=== PATIENT | male | born 1945 ===

== ENCOUNTER 2018-07-17 15:55 | Inpatient (IN) | payer OTHER ==
[~2018-07-17] VITALS: Ht 177.8 cm; Wt 82.8 kg
[2018-07-17] MEDS ORDERED: TIOT18 INH (16:17)
--- NOTE | 2018-07-17 18:29 | NUR ---
ARRIVES VIA W/C ABOUT 1600. ALERT AND ORIENTED. GETS SOB WITH LITTLE EXERTION.IV PLACED BY [facility]. HX LONG TIME SMOKER QUITTING ABOUT 10 YEARS AGO. ON 4 LPM OXYGEN AT THIS TIME WHEN NORMALLY ON ABOUT 1 LPM DEPENDING ON WHAT HE IS DOING. C/O SOME PAIN IN BACK DEPENDING ON IF COUGHING. AWARE NEEDS TO LET STAFF KNOW WHEN HE HAS TO GET UP IS HOOKED UP TO IV AND OXYGEN. TELE ON AND PER TECH ST AT 101. BED IN LOW POSITION. CALL LIGHT WITHIN REACH. WILL CONTINUE TO MONITOR.
[2018-07-18 05:20] LABS: BASOPHILS ABSOLUTE AUTO 0.02 K/mm3 (0.00-0.23); BASOPHILS PERCENT AUTO 0 % (0-2); EOSINOPHILS PERCENT AUTO 0 % (0-6); Hemoglobin 11.7 g/dL (13.5-17.5); IMMATURE GRAN ABSOLUTE AUTO 0.13 K/mm3 (0.00-0.10); IMMATURE GRAN PERCENT AUTO 1 % (0-1); LYMPHOCYTES ABSOLUTE AUTO 0.49 K/mm3 (0.84-5.20); LYMPHOCYTES PERCENT AUTO 5 % (21-46); MONOCYTES ABSOLUTE AUTO 0.13 K/mm3 (0.16-1.47); MONOCYTES PERCENT AUTO 1 % (4-13); Mean Corpuscular HGB 32.4 pg (26.0-34.0); Mean Corpuscular HGB Conc 32.5 g/dL (31.5-36.5); Mean Platelet Volume 10.4 fL (9.1-12.4); NEUTROPHILS ABSOLUTE AUTO 8.92 K/mm3 (1.96-9.15); NEUTROPHILS PERCENT AUTO 92 % (41-73); Platelet Count 297 K/mm3 (150-400); RDW Coefficient Variation 13.7 % (11.7-14.2); Red Blood Cell Count 3.61 M/mm3 (4.30-5.90); White Blood Cell Count 9.69 K/mm3 (4.00-11.30)
[2018-07-18 05:26] LABS: Mean Corpuscular Volume 100 fL (80-100)
[2018-07-18 05:52] LABS: Alanine Aminotransfer (ALT/SGP 17 U/L (12-78); Albumin, Blood 2.4 g/dL (3.4-5.0); Albumin/Globulin Ratio 0.5 (0.8-1.8); Alk Phos 82 U/L (50-136); Anion Gap 7 mmol/L (6-16); Aspartate Aminotrans (AST/SGOT 17 U/L (12-37); Bilirubin, Total 0.3 mg/dL (0.1-1.0); Blood Urea Nitrogen 32 mg/dL (8-24); Bun/Creatinine Ratio 31.1 (12.0-20.0); CO2, Blood 25 mmol/L (21-32); Calcium, Blood 9.4 mg/dL (8.5-10.1); Chloride, Blood 104 mmol/L (98-108); Creatinine, Blood 1.03 mg/dL (0.60-1.20); Globulin, Blood 5.1 g/dL (2.2-4.0); Glomerular Filtration Rate >60 (60-); Glucose, Blood 178 mg/dL (70-99); Potassium, Blood 4.8 mmol/L (3.5-5.5); Sodium, Blood 136 mmol/L (136-145); Total Protein, Blood 7.5 g/dL (6.4-8.2)
--- NOTE | 2018-07-18 06:35 | NUR ---
SHIFT SUMMARY PT A/O INDEPENDENT. 4L O2 NC. SOME SOB C EXCERTION. HE WAS ABLE TO SLEEP T/O NOC. CALL LIGHT IN REACH.
--- NOTE | 2018-07-18 07:51 | NUR ---
ASSUMED CARE OF PT- PT ALERT AND ORIENTED, PER REPORT INDEPENDENT IN THE ROOM. PT ON 4L AT START OF SHIFT. RT INCREASED O2 FLOW TO 5L VIA NC DT PT O2 SATS 86. PT HAS SOB ON EXERTION, ON TELE NSR AT 85. RECIEVING BREATHING Tx AT THE TIME OF ASSESSMENT, LUNGS DIM IN THE RIGHT LOWER LOBE AND FINE CRAKLES IN THE LEFT LOWER LOBE. NO EDEMA NOTED AT THE TIME OF ASSESSMENT ALL PERIPHERAL PULSES PALPATE WNL. CARLOS HOSE IN PLACE. CALL LIGHT IN REACH.
--- NOTE | 2018-07-18 19:34 | NUR ---
SHIFT SUMMARY- PT HAS HAD NO ACUTE CHANGES SINCE THE START OF THE SHIFT, O2 FLOW INCREASED TO 5L AND DR REDUCED STEROIDS THIS EVENING. PT ALERT AND ORIENTED, CALL LIGHT IN REACH, IV ABX RUNNING NOW AND SL AFTER.
[2018-07-19 05:22] LABS: BASOPHILS ABSOLUTE AUTO 0.02 K/mm3 (0.00-0.23); BASOPHILS PERCENT AUTO 0 % (0-2); EOSINOPHILS PERCENT AUTO 0 % (0-6); Hematocrit 36.2 % (37.0-53.0); Hemoglobin 11.7 g/dL (13.5-17.5); IMMATURE GRAN PERCENT AUTO 1 % (0-1); LYMPHOCYTES ABSOLUTE AUTO 0.81 K/mm3 (0.84-5.20); LYMPHOCYTES PERCENT AUTO 5 % (21-46); MONOCYTES ABSOLUTE AUTO 0.64 K/mm3 (0.16-1.47); MONOCYTES PERCENT AUTO 4 % (4-13); Mean Corpuscular HGB 32.4 pg (26.0-34.0); Mean Corpuscular HGB Conc 32.3 g/dL (31.5-36.5); Mean Corpuscular Volume 100 fL (80-100); Mean Platelet Volume 10.3 fL (9.1-12.4); NEUTROPHILS ABSOLUTE AUTO 14.56 K/mm3 (1.96-9.15); NEUTROPHILS PERCENT AUTO 90 % (41-73); Platelet Count 369 K/mm3 (150-400); RDW Coefficient Variation 13.9 % (11.7-14.2); RDW Standard Deviation 51.5 fL (35.1-46.3); Red Blood Cell Count 3.61 M/mm3 (4.30-5.90); White Blood Cell Count 16.23 K/mm3 (4.00-11.30)
[2018-07-19 05:39] LABS: Magnesium, Blood 1.5 mg/dL (1.6-2.4)
[2018-07-19 05:40] LABS: Alanine Aminotransfer (ALT/SGP 21 U/L (12-78); Albumin, Blood 2.5 g/dL (3.4-5.0); Albumin/Globulin Ratio 0.5 (0.8-1.8); Alk Phos 82 U/L (50-136); Anion Gap 7 mmol/L (6-16); Aspartate Aminotrans (AST/SGOT 22 U/L (12-37); Bilirubin, Total 0.4 mg/dL (0.1-1.0); Blood Urea Nitrogen 33 mg/dL (8-24); CO2, Blood 26 mmol/L (21-32); Calcium, Blood 9.5 mg/dL (8.5-10.1); Chloride, Blood 103 mmol/L (98-108); Creatinine, Blood 1.22 mg/dL (0.60-1.20); Globulin, Blood 5.3 g/dL (2.2-4.0); Glomerular Filtration Rate >60 (60-); Glucose, Blood 156 mg/dL (70-99); Phosphorus, Blood 3.6 mg/dL (2.5-4.9); Potassium, Blood 4.5 mmol/L (3.5-5.5); Sodium, Blood 136 mmol/L (136-145); Total Protein, Blood 7.8 g/dL (6.4-8.2)
--- NOTE | 2018-07-19 06:25 | NUR ---
SHIFT SUMMARY PT ON 5L O2 NC @ 94%. STILL CAN GET SOME SOB C EXCERTION. HE WAS ABLE TO SLEEP ON AND OFF T/O NIGHT. CALL LIGHT IN REACH.
--- NOTE | 2018-07-19 07:45 | NUR ---
ASSUMED CARE OF PT- RECIEVED REPORT FROM NIGHT MALINDA STRICKLAND. PT INCREASED FROM 5L NC TO 6L NC, O2 SATS 91-94% RT IN WITH PT STATED HE NEEDS TO AMBULATE IN THE HALLS TODAY AND O2 CAN BE TURNED UP FOR THE PT WHEN HE IS AMBULATING IF NEEDED TO INCREASE ACTIVITY TOLLERANCE. PT ALERT AND ORIENTED SITTING UP IN A CHAIR, NO CURRENT C/O PAIN CALL LIGHT IN REACH, INDEPANDENT IN THE ROOM.
--- NOTE | 2018-07-19 18:48 | NUR ---
SHIFT SUMMARY- PT AMBULATED IN THE [place] TODAY AT THE ENCOURAGEMENT OF RT. PT REQUIRED 10L VIA HIGH FLOW NC TO STAY AT 90% O2 SAT. PT DID NOT FEEL OUT OF BREATH, INSTRUCTED PT ABOUT PURSED LIP BREATHING. ONCE PT WAS BACK IN THE ROOM AT REST HE RECOVERED QUICKLY WITHIN 2 MINUTES AND WAS BACK TO 94% ON 6L VIA HIGH FLOW NC. PT DAUGHTER EXPRESSED CONCERN THAT THE PT MAY NEED MORE ASSISTANCE HE LIVES AT HOME ALONE, CALLED CARE MANAGEMENT, UNTIL CLOSER TO DC NO PLANS WILL BE MADE.
--- NOTE | 2018-07-20 04:20 | NUR ---
SHIFT SUMMARY: PT IS ALERT AND ORIENTED. PT IS CALM, FRIENDLY, AND COOPERATIVE WITH CARE. PT CALLS APPROPRIATELY. PT REPORTS SOB UPON EXERTION, O2 @ 6 L VIA HF NC KEEPING SATS > 90%. PT DENIES PAIN, NAUSEA, AND VOMITING. PT SLEPT MUCH OF THE NIGHT WHEN NOT DISTURBED. NO ACUTE CHANGES OR COMPLICATIONS THIS SHIFT. WILL REPORT TO DAY NURSE.
[2018-07-20 05:15] LABS: BASOPHILS ABSOLUTE AUTO 0.02 K/mm3 (0.00-0.23); BASOPHILS PERCENT AUTO 0 % (0-2); EOSINOPHILS PERCENT AUTO 0 % (0-6); Hematocrit 37.2 % (37.0-53.0); Hemoglobin 11.8 g/dL (13.5-17.5); IMMATURE GRAN ABSOLUTE AUTO 0.14 K/mm3 (0.00-0.10); IMMATURE GRAN PERCENT AUTO 1 % (0-1); LYMPHOCYTES ABSOLUTE AUTO 0.82 K/mm3 (0.84-5.20); LYMPHOCYTES PERCENT AUTO 7 % (21-46); MONOCYTES ABSOLUTE AUTO 0.43 K/mm3 (0.16-1.47); MONOCYTES PERCENT AUTO 4 % (4-13); Mean Corpuscular HGB 31.7 pg (26.0-34.0); Mean Corpuscular HGB Conc 31.7 g/dL (31.5-36.5); Mean Corpuscular Volume 100 fL (80-100); Mean Platelet Volume 10.4 fL (9.1-12.4); NEUTROPHILS ABSOLUTE AUTO 10.76 K/mm3 (1.96-9.15); NEUTROPHILS PERCENT AUTO 88 % (41-73); Platelet Count 386 K/mm3 (150-400); RDW Standard Deviation 51.6 fL (35.1-46.3); Red Blood Cell Count 3.72 M/mm3 (4.30-5.90); White Blood Cell Count 12.17 K/mm3 (4.00-11.30)
[2018-07-20 05:45] LABS: Albumin, Blood 2.5 g/dL (3.4-5.0); Albumin/Globulin Ratio 0.5 (0.8-1.8); Bilirubin, Total 0.2 mg/dL (0.1-1.0); Calcium, Blood 9.3 mg/dL (8.5-10.1); Creatinine, Blood 1.44 mg/dL (0.60-1.20); Globulin, Blood 4.7 g/dL (2.2-4.0); Potassium, Blood 4.9 mmol/L (3.5-5.5); Total Protein, Blood 7.2 g/dL (6.4-8.2)
--- NOTE | 2018-07-20 17:15 | NUR ---
SHIFT SUMMARY PT IS A&OX3. PT IS CALM AND COOPERATIVE. PT IS SELF AMBULATORY IN ROOM. PT HAS SPENT THE MAJORITY OF THE SHIFT SITTING IN CHAIR IN ROOM. PT HAS HAD MULTIPLE VISITORS THIS SHIFT. O2 HAS BEEN TITRATED DOWN TO 4L THIS SHIFT WITH O2 SATS AT 94 AFTER TITRATION. PT ACTIVELY USING INCINTIVE SPIROMETER. PT STATES NO ADDITIONAL NEEDS AT THIS TIME. WILL CONTINUE TO MONITOR.
--- NOTE | 2018-07-21 03:34 | NUR ---
SHIFT SUMMARY: PT IS ALERT AND ORIENTED. PT IS CALM, FRIENDLY, AND COOPERATIVE WITH CARE. PT CALLS APPROPRIATELY. PT IS INDEPENDENT IN THE ROOM. PT CONTINUES TO BE ON 5 L O2 VIA HF NC, SATS > 90%. PT SLEPT MOST OF THE NIGHT WHEN NOT DISTURBED. PT DENIES PAIN, NAUSEA, VOMITING, AND SOB. NO ACUTE CHANGES OR COMPLICATIONS OVERNIGHT. BED IN LOW POSITION, CALL LIGHT WITHIN REACH. WILL REPORT TO DAY NURSE.
[2018-07-21 04:41] LABS: BASOPHILS ABSOLUTE AUTO 0.02 K/mm3 (0.00-0.23); BASOPHILS PERCENT AUTO 0 % (0-2); EOSINOPHILS PERCENT AUTO 0 % (0-6); Hematocrit 38.4 % (37.0-53.0); Hemoglobin 12.3 g/dL (13.5-17.5); IMMATURE GRAN ABSOLUTE AUTO 0.26 K/mm3 (0.00-0.10); IMMATURE GRAN PERCENT AUTO 2 % (0-1); LYMPHOCYTES ABSOLUTE AUTO 0.89 K/mm3 (0.84-5.20); LYMPHOCYTES PERCENT AUTO 6 % (21-46); MONOCYTES ABSOLUTE AUTO 0.47 K/mm3 (0.16-1.47); MONOCYTES PERCENT AUTO 3 % (4-13); Mean Corpuscular HGB 31.9 pg (26.0-34.0); Mean Corpuscular Volume 100 fL (80-100); Mean Platelet Volume 10.2 fL (9.1-12.4); NEUTROPHILS ABSOLUTE AUTO 13.36 K/mm3 (1.96-9.15); NEUTROPHILS PERCENT AUTO 89 % (41-73); Platelet Count 390 K/mm3 (150-400); RDW Coefficient Variation 13.9 % (11.7-14.2); RDW Standard Deviation 51.6 fL (35.1-46.3); Red Blood Cell Count 3.85 M/mm3 (4.30-5.90)
[2018-07-21 04:59] LABS: Bun/Creatinine Ratio 34.5 (12.0-20.0); Calcium, Blood 9.4 mg/dL (8.5-10.1); Creatinine, Blood 1.74 mg/dL (0.60-1.20); Magnesium, Blood 1.9 mg/dL (1.6-2.4); Potassium, Blood 5.4 mmol/L (3.5-5.5)
--- NOTE | 2018-07-21 17:05 | NUR ---
SHIFT SUMMARY PT ALERT AND ORIENTED THROUGHOUT SHIFT. PT IS CALM AND COOPERATIVE AND GERDA APPROPRIATELY. PT HAS BEEN UP IN A CHAIR THROUGH THIS SHIFT. PT CONTINUES TO BE ON 5L O2. PT IS SELF AMBULATORY IN THE ROOM. PT DENIES FURTHER NEEDS AT THIS TIME. WILL CONTINUE TO MONITOR.
--- NOTE | 2018-07-21 18:22 | NUR ---
I AGREE WITH THE SN CAROLA GAN ASSESSMENT AND CARE OF THE PT TODAY
--- NOTE | 2018-07-22 03:53 | NUR ---
SHIFT SUMMARY: PT IS ALERT AND ORIENTED. PT IS CALM, FRIENDLY, AND COOPERATIVE WITH CARE. PT CALLS APPROPRIATELY. PT IS INDEPENDENT IN THE ROOM. PT ON 4.5 L O2, KEEPING SATS > 90%. PT DENIES PAIN, NAUSEA, AND VOMITING. PT REPORTS SOB UPON EXERTION. POSSIBLE DC TODAY. NO ACUTE CHANGES OR COMPLICATIONS. WILL REPORT TO DAY NURSE.
[2018-07-22 05:29] LABS: BASOPHILS ABSOLUTE AUTO 0.04 K/mm3 (0.00-0.23); BASOPHILS PERCENT AUTO 0 % (0-2); EOSINOPHILS ABSOLUTE AUTO 0.04 K/mm3 (0.00-0.68); EOSINOPHILS PERCENT AUTO 0 % (0-6); Hematocrit 39.5 % (37.0-53.0); Hemoglobin 12.7 g/dL (13.5-17.5); IMMATURE GRAN ABSOLUTE AUTO 0.57 K/mm3 (0.00-0.10); IMMATURE GRAN PERCENT AUTO 3 % (0-1); LYMPHOCYTES ABSOLUTE AUTO 1.47 K/mm3 (0.84-5.20); LYMPHOCYTES PERCENT AUTO 8 % (21-46); MONOCYTES ABSOLUTE AUTO 1.05 K/mm3 (0.16-1.47); MONOCYTES PERCENT AUTO 6 % (4-13); Mean Corpuscular HGB 31.5 pg (26.0-34.0); Mean Corpuscular HGB Conc 32.2 g/dL (31.5-36.5); Mean Corpuscular Volume 98 fL (80-100); Mean Platelet Volume 10.4 fL (9.1-12.4); NEUTROPHILS ABSOLUTE AUTO 14.97 K/mm3 (1.96-9.15); NEUTROPHILS PERCENT AUTO 83 % (41-73); Platelet Count 365 K/mm3 (150-400); RDW Coefficient Variation 13.8 % (11.7-14.2); RDW Standard Deviation 50.4 fL (35.1-46.3); Red Blood Cell Count 4.03 M/mm3 (4.30-5.90); White Blood Cell Count 18.14 K/mm3 (4.00-11.30)
[2018-07-22 05:51] LABS: Bun/Creatinine Ratio 41.9 (12.0-20.0); Calcium, Blood 9.3 mg/dL (8.5-10.1); Creatinine, Blood 1.48 mg/dL (0.60-1.20); Potassium, Blood 4.7 mmol/L (3.5-5.5)
--- NOTE | 2018-07-22 15:27 | NUR ---
SHIFT SUMMARY 73 YR OLD MALE ADMITTED FOR RESPIRATORY FAILURE/PNEUMONIA. LIMITED CODE (MEDS/DEFIBRILLATION IS OK). CARDIAC DIET. 4 1/2 LPM O2 (10-12 LPM WITH EXERTION). PT WAS ON 2-3 LPM O2 @ HOME BEFORE ADMIT. HE IS A&O X4, INDEPENDENT IN ROOM. CARLOS HOSE IN PLASE. LIVES ALONE. HE REQUESTS ASSISTANCE WITH DISCHARGE NEEDS (HOME HEALTH, BILL, MEDICAL SUPPORT SPECIALIST/ADL'S). MAY DISCHARGE TOMORROW. NEEDS HOME O2 EVAL. HX: COPD, PROSTATE CANCER, CKD 3, T-8 COMPRESSION FRACTURE. HOSPITALIST MAY SWITCH TO ORAL STEROIDS TODAY (WAS IV SOLUMEDROL).
--- NOTE | 2018-07-23 03:44 | NUR ---
07/23/18 0345 PT SLEEPING WELL.
--- NOTE | 2018-07-23 06:39 | NUR ---
07/23/18 0630 AWAKE AND CHEERFUL THIS AM. DENIES ANY S/S AT PRESENT. HOPING TO GO BACK TO SLEEP. STATES HE SLEPT BETTER BUT WOULD ENJOY MORE. VITALS STABLE.
[2018-07-23] MEDS ORDERED: ASPI81CH PO (15:18)
[2018-07-23] MEDS ORDERED: GUAI600T33 PO (15:20)
[2018-07-23] MEDS ORDERED: ALBU3IS INH (15:21)
[2018-07-23] MEDS ORDERED: PRED10 PO (15:23)
[2018-07-23] MEDS ORDERED: LEVOFLOXACIN500 MG PO (15:24)
[2018-07-23] MEDS ORDERED: FLUTICASONE-SA1 EAC4 INH (15:25)
--- NOTE | 2018-07-23 16:17 | NUR ---
PT DISCHARGED PT DISCHARGED AT 1615. PT IN STABLE CONDITION WITH VSS. PT & DAUGHTER EDUCATED ON DC INSTRUCTIONS. BOTH DENIED FURTHER INSTRUCTION. PT WHEELED OUT BY THIS RN & DRIVEN HOME BY DAUGHTER. IV REMOVED & INTACT
== END 2018-07-23 16:17 | disposition home or self-care (01) | DRG 193 ==
LOC: MEDS 15:55
PROVIDERS: Family Medicine; Student in an Organized Health Care Education/Training Program; ADMIT Hospitalist
DX: J18.1 Lobar pneumonia, unspecified organism (principal); J96.21 Acute and chronic respiratory failure with hypoxia; S22.000A Wedge compression fracture of unspecified thoracic vertebra, initial encounter for closed fracture; E87.1 Hypo-osmolality and hyponatremia; J43.9 Emphysema, unspecified; Z99.81 Dependence on supplemental oxygen; Z96.21 Cochlear implant status; K76.0 Fatty (change of) liver, not elsewhere classified; K75.81 Nonalcoholic steatohepatitis (NASH); N18.3 Chronic kidney disease, stage 3 (moderate); I12.9 Hypertensive chronic kidney disease with stage 1 through stage 4 chronic kidney disease, or unspecified chronic kidney disease; Z87.891 Personal history of nicotine dependence; Y92.9 Unspecified place or not applicable
CPT/HCPCS: 36415; 71045; 71046; 71250; 80048; 80053; 83735; 84100; 84145; 85025; 87040; 87070; 87205; 93005; 93010; 94640; 94667; 94760; 94761; J1650; J1956; J2930; J7512

== ENCOUNTER → 2018-07-17 | Outpatient (CLI) | payer OTHER ==
[~2018-07-17] MED LIST: TIOT18 INH
[2018-07-17 12:36] LABS: BASOPHILS ABSOLUTE AUTO 0.08 K/mm3 (0.00-0.23); BASOPHILS PERCENT AUTO 1 % (0-2); EOSINOPHILS ABSOLUTE AUTO 0.11 K/mm3 (0.00-0.68); EOSINOPHILS PERCENT AUTO 1 % (0-6); Hematocrit 38.1 % (37.0-53.0); Hemoglobin 12.7 g/dL (13.5-17.5); IMMATURE GRAN ABSOLUTE AUTO 0.26 K/mm3 (0.00-0.10); IMMATURE GRAN PERCENT AUTO 2 % (0-1); LYMPHOCYTES ABSOLUTE AUTO 0.62 K/mm3 (0.84-5.20); LYMPHOCYTES PERCENT AUTO 4 % (21-46); MONOCYTES ABSOLUTE AUTO 1.37 K/mm3 (0.16-1.47); MONOCYTES PERCENT AUTO 8 % (4-13); Mean Corpuscular HGB 32.3 pg (26.0-34.0); Mean Corpuscular HGB Conc 33.3 g/dL (31.5-36.5); Mean Corpuscular Volume 97 fL (80-100); NEUTROPHILS ABSOLUTE AUTO 14.16 K/mm3 (1.96-9.15); NEUTROPHILS PERCENT AUTO 85 % (41-73); Platelet Count 344 K/mm3 (150-400); RDW Coefficient Variation 13.7 % (11.7-14.2); RDW Standard Deviation 49.2 fL (35.1-46.3); Red Blood Cell Count 3.93 M/mm3 (4.30-5.90)
[2018-07-17 12:40] LABS: Calcium, Blood 10.1 mg/dL (8.5-10.1); Creatinine, Blood 1.25 mg/dL (0.60-1.20); Potassium, Blood 4.8 mmol/L (3.5-5.5)
== END | disposition home or self-care (01) ==
LOC: LAB EV 12:31 → LAB SHORT 12:31
PROVIDERS: Physician Assistant Surgical
DX: R06.02 Shortness of breath (principal)
CPT/HCPCS: 80048; 83880; 85025

== ENCOUNTER → 2018-08-10 | Outpatient (CLI) | payer OTHER ==
[~2018-08-10] MED LIST changes: +ALBU3IS INH; +ALBU90OI61 INH; +ASPI81CH PO; +CHOL10002; +Colace100 MG PO; +FLUTICASONE-SA1 EAC4 INH; +Fish Oil 10001000 MG PO; +GUAI600T33 PO; +LEVOFLOXACIN500 MG PO; +PRED10 PO; +PRED20 PO; +glycopyrrolate INH
[2018-08-10 10:12] LABS: BASOPHILS ABSOLUTE AUTO 0.02 K/mm3 (0.00-0.23); BASOPHILS PERCENT AUTO 0 % (0-2); EOSINOPHILS ABSOLUTE AUTO 0.26 K/mm3 (0.00-0.68); EOSINOPHILS PERCENT AUTO 5 % (0-6); Hematocrit 36.8 % (37.0-53.0); Hemoglobin 12.3 g/dL (13.5-17.5); IMMATURE GRAN ABSOLUTE AUTO 0.03 K/mm3 (0.00-0.10); IMMATURE GRAN PERCENT AUTO 1 % (0-1); LYMPHOCYTES ABSOLUTE AUTO 0.45 K/mm3 (0.84-5.20); LYMPHOCYTES PERCENT AUTO 9 % (21-46); MONOCYTES ABSOLUTE AUTO 0.32 K/mm3 (0.16-1.47); MONOCYTES PERCENT AUTO 6 % (4-13); Mean Corpuscular HGB 32.1 pg (26.0-34.0); Mean Corpuscular HGB Conc 33.4 g/dL (31.5-36.5); Mean Corpuscular Volume 96 fL (80-100); NEUTROPHILS ABSOLUTE AUTO 4.14 K/mm3 (1.96-9.15); NEUTROPHILS PERCENT AUTO 79 % (41-73); Platelet Count 171 K/mm3 (150-400); RDW Standard Deviation 49.4 fL (35.1-46.3); Red Blood Cell Count 3.83 M/mm3 (4.30-5.90); White Blood Cell Count 5.22 K/mm3 (4.00-11.30)
[2018-08-10 10:21] LABS: Alanine Aminotransfer (ALT/SGP 20 U/L (12-78); Albumin, Blood 2.9 g/dL (3.4-5.0); Albumin/Globulin Ratio 0.7 (0.8-1.8); Alk Phos 100 U/L (40-126); Anion Gap 9 mmol/L (6-16); Aspartate Aminotrans (AST/SGOT 25 U/L (12-37); Bilirubin, Total 0.3 mg/dL (0.1-1.0); Blood Urea Nitrogen 22 mg/dL (8-24); Bun/Creatinine Ratio 19.5 (12.0-20.0); CO2, Blood 26 mmol/L (21-32); Calcium, Blood 8.8 mg/dL (8.5-10.1); Chloride, Blood 103 mmol/L (98-108); Creatinine, Blood 1.13 mg/dL (0.60-1.20); Globulin, Blood 4.4 g/dL (2.2-4.0); Glomerular Filtration Rate >60 (60-); Glucose, Blood 178 mg/dL (70-99); Potassium, Blood 4.2 mmol/L (3.5-5.5); Sodium, Blood 138 mmol/L (136-145); Total Protein, Blood 7.3 g/dL (6.4-8.2)
== END | disposition home or self-care (01) ==
LOC: LAB EV 10:07 → LAB SHORT 10:07
PROVIDERS: General Practice
DX: M54.6 Pain in thoracic spine (principal)
CPT/HCPCS: 80053; 85025

== ENCOUNTER 2018-08-30 09:36 | Inpatient (IN) | payer OTHER ==
[~2018-08-30] VITALS: Ht 177.8 cm; Wt 80.8 kg
[~2018-08-30 09:36] MED LIST changes: -ALBU90OI61 INH; -CHOL10002; -Colace100 MG PO; -Fish Oil 10001000 MG PO; -PRED20 PO; -glycopyrrolate INH
[2018-08-30 09:49] LABS: BASOPHILS ABSOLUTE AUTO 0.03 K/mm3 (0.00-0.23); BASOPHILS PERCENT AUTO 0 % (0-2); EOSINOPHILS ABSOLUTE AUTO 0.47 K/mm3 (0.00-0.68); EOSINOPHILS PERCENT AUTO 5 % (0-6); Hematocrit 41.1 % (37.0-53.0); Hemoglobin 12.5 g/dL (13.5-17.5); IMMATURE GRAN ABSOLUTE AUTO 0.06 K/mm3 (0.00-0.10); IMMATURE GRAN PERCENT AUTO 1 % (0-1); LYMPHOCYTES ABSOLUTE AUTO 0.74 K/mm3 (0.84-5.20); LYMPHOCYTES PERCENT AUTO 7 % (21-46); MONOCYTES ABSOLUTE AUTO 0.84 K/mm3 (0.16-1.47); MONOCYTES PERCENT AUTO 8 % (4-13); Mean Corpuscular HGB 31.3 pg (26.0-34.0); Mean Corpuscular HGB Conc 30.4 g/dL (31.5-36.5); Mean Corpuscular Volume 103 fL (80-100); Mean Platelet Volume 10.3 fL (9.1-12.4); NEUTROPHILS ABSOLUTE AUTO 8.41 K/mm3 (1.96-9.15); NEUTROPHILS PERCENT AUTO 80 % (41-73); Platelet Count 281 K/mm3 (150-400); RDW Coefficient Variation 15.3 % (11.7-14.2); RDW Standard Deviation 56.8 fL (35.1-46.3); White Blood Cell Count 10.55 K/mm3 (4.00-11.30)
[2018-08-30 10:08] LABS: Alanine Aminotransfer (ALT/SGP 14 U/L (12-78); Albumin, Blood 3.3 g/dL (3.4-5.0); Albumin/Globulin Ratio 0.8 (0.8-1.8); Alk Phos 96 U/L (50-136); Anion Gap 5 mmol/L (6-16); Aspartate Aminotrans (AST/SGOT 20 U/L (12-37); Bilirubin, Total 0.6 mg/dL (0.1-1.0); Blood Urea Nitrogen 16 mg/dL (8-24); Bun/Creatinine Ratio 19.8 (12.0-20.0); CO2, Blood 31 mmol/L (21-32); Calcium, Blood 8.8 mg/dL (8.5-10.1); Chloride, Blood 104 mmol/L (98-108); Creatinine, Blood 0.81 mg/dL (0.60-1.20); Globulin, Blood 4.3 g/dL (2.2-4.0); Glomerular Filtration Rate >60 (60-); Glucose, Blood 120 mg/dL (70-99); Potassium, Blood 4.2 mmol/L (3.5-5.5); Sodium, Blood 140 mmol/L (136-145); Total Protein, Blood 7.6 g/dL (6.4-8.2)
[2018-08-30 10:20] LABS: Base Excess Venous 6.9 mmol/L; Bicarbonate Venous 29.6 mmol/L (24.0-30.0); PCO2 Venous 46.9 mmHg (38-42); PO2 Venous 55.1 mmHg (38-42); pH Blood Venous 7.43 (7.34-7.37)
--- NOTE | 2018-08-30 20:00 | NUR ---
PCU ADMIT PT BROUGHT TO PCU RM 04 BY [facility]EX FROM THE ER @ APPROX 1950. PT A&O X4, CALM AND COOPERATIVE. PT BROUGHT TO UNIT ON BIPAP, SWITCHED TO OXYMIZER @ 10 LPM FOR TRANSFER TO PCU BED W/ DESAT TO 80'S. PT PLACED BACK ON BIPAP 12/02, FIO2 60% W/ QUICK RECOVERY. MONITOR SHOWS NSR, HR 60-100. WILL CONTINUE TO MONITOR AND PROVIDE CARE.
[2018-08-30] MEDS ORDERED: CHOL10002 (20:21)
[2018-08-30] MEDS ORDERED: Fish Oil 10001000 MG PO (20:22)
[2018-08-30] MEDS ORDERED: Colace100 MG PO (20:26)
[2018-08-31 04:17] LABS: BASOPHILS ABSOLUTE AUTO 0.02 K/mm3 (0.00-0.23); BASOPHILS PERCENT AUTO 0 % (0-2); EOSINOPHILS PERCENT AUTO 1 % (0-6); Hematocrit 38.1 % (37.0-53.0); Hemoglobin 11.8 g/dL (13.5-17.5); IMMATURE GRAN ABSOLUTE AUTO 0.02 K/mm3 (0.00-0.10); IMMATURE GRAN PERCENT AUTO 0 % (0-1); LYMPHOCYTES ABSOLUTE AUTO 0.68 K/mm3 (0.84-5.20); LYMPHOCYTES PERCENT AUTO 8 % (21-46); MONOCYTES ABSOLUTE AUTO 0.59 K/mm3 (0.16-1.47); MONOCYTES PERCENT AUTO 7 % (4-13); Mean Corpuscular HGB 31.8 pg (26.0-34.0); Mean Corpuscular Volume 103 fL (80-100); Mean Platelet Volume 10.5 fL (9.1-12.4); NEUTROPHILS ABSOLUTE AUTO 6.92 K/mm3 (1.96-9.15); NEUTROPHILS PERCENT AUTO 83 % (41-73); Platelet Count 258 K/mm3 (150-400); RDW Coefficient Variation 15.3 % (11.7-14.2); RDW Standard Deviation 57.2 fL (35.1-46.3); Red Blood Cell Count 3.71 M/mm3 (4.30-5.90); White Blood Cell Count 8.33 K/mm3 (4.00-11.30)
[2018-08-31 04:38] LABS: Alanine Aminotransfer (ALT/SGP 12 U/L (12-78); Albumin, Blood 2.9 g/dL (3.4-5.0); Albumin/Globulin Ratio 0.7 (0.8-1.8); Alk Phos 83 U/L (50-136); Anion Gap 5 mmol/L (6-16); Aspartate Aminotrans (AST/SGOT 16 U/L (12-37); Bilirubin, Total 0.5 mg/dL (0.1-1.0); Blood Urea Nitrogen 22 mg/dL (8-24); Bun/Creatinine Ratio 28.8 (12.0-20.0); CO2, Blood 31 mmol/L (21-32); Calcium, Blood 8.9 mg/dL (8.5-10.1); Chloride, Blood 103 mmol/L (98-108); Creatinine, Blood 0.77 mg/dL (0.60-1.20); Glomerular Filtration Rate >60 (60-); Glucose, Blood 112 mg/dL (70-99); Potassium, Blood 4.4 mmol/L (3.5-5.5); Sodium, Blood 139 mmol/L (136-145); Total Protein, Blood 6.9 g/dL (6.4-8.2)
--- NOTE | 2018-08-31 05:16 | NUR ---
SHIFT SUMMARY PT A&O X4. VSS. EXP WHEEZE HEARD T/O LUNGS. PT TOLERATING BIPAP /, FIO2 60% WELL T/O SHIFT. PT NOT TOLERATING BEING OFF BIPAP WELL: 10L OXYMIZER APPLIED X2 THIS SHIFT FOR TRANSFER FROM ER [facility] TO PCU BED AND FOR PT TO EAT HALF A SANDWICH RESULTING IN SPO2 DESAT TO 70'S-80'S%, PT RECOVERED SUCCESSFULLY W/ REAPPLICATION OF BIPAP. MONITOR SHOWS NSR, HR 60-100. PT SBA, USING URINAL AT BEDSIDE. WILL CONTINUE TO MONITOR AND PROVIDE CARE UNTIL REPORT OFF TO DAY SHIFT RN.
[2018-08-31 06:05] LABS: PCO2 Arterial 50.3 mmHg (35-45); PO2 Arterial 103 mmHg (80-100); pH Blood Arterial 7.42 (7.35-7.45)
--- NOTE | 2018-08-31 11:52 | NUR ---
PT PLEASANT VERY TALKATIVE. HAD TO ENCOURAGE HIM TO SLOW DOWN AND BREATHE MORE. DENIES PAIN. H/R REG, NO MURMER NOTED. PER TELE: NSR AT 63. LUNGS LIGHTLY WHEEZY T/O. RESP EASY, UNLABORED. AT 18. ON 15 L HHI FLOW NC. BT X4 LAST BM THIS AM. LARGE. VOIDS PER URINAL. BED IN LOW POSITION, CALL LITE IN REACH, CALLS APROP PT STATES HAS TICK BITE. THINKS HEAD STILL IN. IN LEFT INNER THIGH. SMALL BLACK SPOT ON LEG, HEAD OF ERASER SIZE.
--- NOTE | 2018-08-31 19:20 | NUR ---
PT QUITE PLEASANT TODAY. DID HAVE SOME VISITORS TODAY. DOES DESAT WHEN TALKING A LOT. ENCOURAGED TO KEEP BREATHING AND REST BETWEEN TALKING. STATES UNDERSTANDING, BUT CONTINUES TO TALK. NO OTHER CONCERNS AT THIS TIME. BED IN LOW POSITION, CALL LITE IN REACH, CALLS APPROP
[2018-09-01 04:09] LABS: BASOPHILS ABSOLUTE AUTO 0.03 K/mm3 (0.00-0.23); BASOPHILS PERCENT AUTO 0 % (0-2); EOSINOPHILS ABSOLUTE AUTO 0.36 K/mm3 (0.00-0.68); EOSINOPHILS PERCENT AUTO 4 % (0-6); Hematocrit 39.3 % (37.0-53.0); Hemoglobin 12.1 g/dL (13.5-17.5); IMMATURE GRAN ABSOLUTE AUTO 0.07 K/mm3 (0.00-0.10); IMMATURE GRAN PERCENT AUTO 1 % (0-1); LYMPHOCYTES ABSOLUTE AUTO 1.18 K/mm3 (0.84-5.20); LYMPHOCYTES PERCENT AUTO 12 % (21-46); MONOCYTES ABSOLUTE AUTO 0.76 K/mm3 (0.16-1.47); MONOCYTES PERCENT AUTO 7 % (4-13); Mean Corpuscular HGB 31.5 pg (26.0-34.0); Mean Corpuscular HGB Conc 30.8 g/dL (31.5-36.5); Mean Corpuscular Volume 102 fL (80-100); Mean Platelet Volume 10.5 fL (9.1-12.4); NEUTROPHILS ABSOLUTE AUTO 7.85 K/mm3 (1.96-9.15); NEUTROPHILS PERCENT AUTO 77 % (41-73); Platelet Count 271 K/mm3 (150-400); RDW Coefficient Variation 15.2 % (11.7-14.2); RDW Standard Deviation 55.8 fL (35.1-46.3); Red Blood Cell Count 3.84 M/mm3 (4.30-5.90); White Blood Cell Count 10.25 K/mm3 (4.00-11.30)
[2018-09-01 04:29] LABS: Anion Gap 5 mmol/L (6-16); Blood Urea Nitrogen 26 mg/dL (8-24); Bun/Creatinine Ratio 31.3 (12.0-20.0); CO2, Blood 30 mmol/L (21-32); Chloride, Blood 104 mmol/L (98-108); Creatinine, Blood 0.83 mg/dL (0.60-1.20); Glomerular Filtration Rate >60 (60-); Glucose, Blood 98 mg/dL (70-99); Potassium, Blood 3.9 mmol/L (3.5-5.5); Sodium, Blood 139 mmol/L (136-145)
--- NOTE | 2018-09-01 06:01 | NUR ---
SHIFT SUMMARY PT A&O X4, PLEASANT AND COOPERATIVE. PT WEARING BIPAP MAJORITY OF NIGHT, BIPAP 10/, FIO2 45%. MONITOR SHOWS NSR. VSS. NO C/O PAIN. PT REPORT OF TICK BITE TO L INNER THIGH. PT AWAITING REMOVAL OF TICK BY MD. WILL CONTINUE TO MONITOR AND PROVIDE CARE UNTIL REPORT OFF TO DAY SHIFT RN.
--- NOTE | 2018-09-01 08:05 | NUR ---
AM NOTE. ASSUMED CARE OF PT APROX 0700, PT IS A&Ox4 AND SBA IN THE ROOM D/T SOB AND O2 SATS DROPPING VERY QUICKLY. PT WAS ADMITTED FOR RESP FAILURE, PT HAS BIPAP IN THE ROOM AND IS ON 13L HI FLOW WITH O2 SATS AT 92%. PT'S VS STABLE, PT DENIES ANY CHESTPAIN/PRESSURE OR N/V. PT IS ABLE TO SWALLOW PILLS WHOLE WIHT WATER. CALL LIGHT IN REACH, BED IS LOCKED AND LOW WILL CONTINUE TO MONITOR.
--- NOTE | 2018-09-01 18:34 | NUR ---
SHIFT SUMMARY. NO ACUTE CHANGES NOTED THIS SHIFT. PT'S VS HAVE BEEN STABLE T/O SHIFT. PT DENIES ANY CHEST PAIN/PRESSURE, N/V OR INCREASED/ABNORMAL SOB. PT IS STABLE ON 12L HI FLOW NC AND HAS NOT NEEDED THE BIPAP ALL SHIFT. PT HAS BEEN UP IN THE CHAIR SINCE AFTER BREAKFAST AND HAS REQUESTED TO STAY IN THE CHAIR FOR THE REST OF THE SHIFT. CALL LIGHT IN REACH, BED IS LOCKED AND LOW WILL CONTINUE TO MONITOR UNTIL REPORT IS GIVEN TO ONCOMING RN.
--- NOTE | 2018-09-01 22:04 | NUR ---
ASSUMED CARE OF PATIENT AT APPROXIMATELY 1900 FROM KENNETH Dong RN. PATIENT ALERT AND ORIENTED X4; INDEPENDENT IN ROOM FROM BED TO CHAIR; CALLS FOR BIPAP PLACEMENT. PATIENT DENIES CP/PRESSURE, PAIN ELSEWHERE, NUMBNESS, TINGLING, DIZZINESS AND NAUSEA. PATIENT REPORTS TOMORROW WILL BE DAY THREE OF NO BM; REPORTS HE WOULD RATHER BE CONSTIPATED THEN HAVE A BM IN THE BEDSIDE; PATIENT HAS DYSPNEA WITH MOVEMENT AND TALKING; OXYGEN SATURATION DROPS TO 85% AND PATIENT NEEDS ENCOURAGEMENT TO BREATH AND REST; OXYGEN SATURATION RISES BACK UP WITH SECONDS TO A MINUTE. PATIENT REPORTS HE WAS W/O OXYGEN FOR A WHILE WHEN THE POWER WAS OUT. NSR ON TELE; OXYGEN SATURATION ABOVE 90% ON 13LPM VIA HF NC OR ON BIPAP. PIV S/L. PATIENT CURRENTLY RESTING IN BED; CALL LIGHT IN REACH; BED ALARM ON; BED IN LOWEST POSISTION; WILL CONTINUE TO MONITOR AND ASSESS UNTIL END OF SHIFT.
--- NOTE | 2018-09-02 06:48 | NUR ---
PATIENT SLEPT ABOUT EIGHT HOURS OFF AND ON; VS. PATIENT HAD BM; BEDSIDE COMMODE. WILL CONTINUE TO MONITOR AND ASSESS UNTIL END OF SHIFT.
[2018-09-02] MEDS ORDERED: ALBU90OI61 INH (16:55)
--- NOTE | 2018-09-02 18:51 | NUR ---
SHIFT SUMMARY PT RESTING IN BED / CHAIR THROUGHOUT THE DAY. ALERT AND ORIENTED X3. DENIES PAIN THROUGHOUT THE DAY. VSS. OXYGEN SATURATIONS GREATER THAN 90% ON 13L HIGH FLOW CANNULA, TITRATED TO 12L VIA HIGH FLOW CANNULA, PT TOLERATED WELL. LUNG SOUNDS CLEAR, DIMINISHED THROUGHOUT. 3+ PITTING EDEMA TO BILATERAL FEET, 2+ PITTING EDEMA TO BLE. REDNESS NOTED TO BLE, WHICH IMPROVED THROUGHOUT THE SHIFT. PT UP TO BEDSIDE COMMODE WITH 1 PERSON ASSIST AND FWW.
--- NOTE | 2018-09-03 04:48 | NUR ---
END OF SHIFT SUMMARY PT HAS BEEN ALERT AND ORIEMNTED TALKING WITH STAFF APPROPRIATELY T/O SHIFT. THIS RN SPOKE WITH RESPIRATORY CARE REGARDING NEED FOR PT TO WEAR BIPAP TIS SHIFT. RT STATES THAT HE WOULD BE OKAY TO JUST USE O2 THIS SHIFT HE HAS BEEN IMPROVING WITH HIS RESPIRATORY STATUS AND DOES NOT WEAR CPAP/BIPAP AT HOME. PT INITALLY AT 11 L HIFLO NC HUMIDIFIED. PT HAS BEEN GRADUALLY TITRATED BY RT AND THIS RN TO 4.5. PT HAS TOLERATED THIS WELL. THIS IS HIS BASELINE O2. SPO2>90%. LUNGS DIM T/O. PT HAS SLEPT T/O NIGHT. HAS HAD LITTLE COMPLAINTS TO THIS NURSE. USES CALL LIGHT APPROPRIATELY. PT HAS BEEN USING URINAL TO VOID. WAS UP IN CHAIR INITIALLY THIS SHIFT. CALL LIGHT WOTHIN REACH. WILL CONTINUE TO MONITOR PT UNTIL SHIFT CHANGE.
[2018-09-03 07:43] LABS: Anion Gap 6 mmol/L (6-16); Blood Urea Nitrogen 41 mg/dL (8-24); Bun/Creatinine Ratio 51.6 (12.0-20.0); CO2, Blood 29 mmol/L (21-32); Calcium, Blood 9.4 mg/dL (8.5-10.1); Chloride, Blood 103 mmol/L (98-108); Creatinine, Blood 0.79 mg/dL (0.60-1.20); Glomerular Filtration Rate >60 (60-); Glucose, Blood 121 mg/dL (70-99); Potassium, Blood 4.5 mmol/L (3.5-5.5); Sodium, Blood 138 mmol/L (136-145)
--- NOTE | 2018-09-03 17:33 | NUR ---
PT NOW MED NO TELE STATUS PER . HE IS ON 7.5 LITERS O2 AT THIS TIME. DESATS VERY QUICKLY WITH MINIMAL EXERTION. HE IS SBA IN ROOM. USES WALKER TO GO TO THE RESTROOM. HE IS AO X 4 AND COOPERATAIVE WITH CARE TODAY. USES CALL LIGHT APPROPRIATELY. LUNGS ARE DIM BUT TIGHT. NO COUGH IS NOTED AT THIS TIME. HE USES PURSED LIP BREATHING WITH EXWERTION. TAKES PILLS WHOLE WITH WATER WITHOUT DIFF. WILL CONTINUE TO MONITOR THIS PATEINT UNTIL REPORT AND HAND OFF TO NOC SHIFT RN.
--- NOTE | 2018-09-03 20:08 | NUR ---
PCU NIGHTSHIFT ASSUMED CARE OF PT APPROX. 1900. PT A&OX4. ASSESSMENT COMPLETED. VITAL SIGNS STABLE. PT CURRENLTY UP IN CHAIR AT THIS TIME. PT REPORTS BREATHING IMPROVED SINCE ADMISSION. PT CURRENLTY ON 7L OXYFGEN VIA N.C. PT ABLE TO AMBULATE TO BATHROOM AND TOLERATES WELL. NO S/SX OF ACUTE DISTRESS. LUNG SOUNDS ON RIGHT LOBES CLEAR AND ELFT UPPER LOBE DIM BUT CLEAR AND LEFT LOW LOBE TIGHT. ABDOMEN HAS MILD DISTENTION THAT PT REPORTS NORMAL AND DENIES TENDER NESS. LEFT UPPER THIGH IS SITE OF TICK BITE WHERE PHYSCIAN REMOVED HEAD OF TICK. CALL LIGHT IN REACH AND PT DENIES ANY NEEDS AT THIS TIME. WILL CONTINUE TO MONITOR.
--- NOTE | 2018-09-04 04:57 | NUR ---
SHIFT SUMMARY PT PLEASNAT, COOPERATIVE AND USES CALL LIGHT APPROPRIATELY. PT REMAINS A&OX4. VITAL SIGNS REMAIN STABLE. WAS ABLE TO TITRATE OXYGEN DOWN TO 6L WITH OXYGEN SATS IN 90'S. WHILE PATIENT WAS TALKING HE DIPPED DOWN TO 89% AT ONE POINT WITH THIS BUT RECOVERED QUICKLY. NO S/SX OF LABORED BREATHING AND PT DENIES SOB. PT ABLE TO HOLD CONVERSATION AND EXERT HIMSELF WITHOUT SOB. ASSESSMENT FINDINGS REMAIN UNCHANGED SINCE START OF SHIFT. PT CURRENLTY IN BED SLEEPING. BED IN LOW POSITION, CALL LIGHT IN REACH AND PT DENIES ANY NEEDS AT THIS TIME. WILL CONTINUE TO MONITOR UNTIL HANDOFF TO DAYSHIFT RN.
[2018-09-04 07:25] LABS: Anion Gap 7 mmol/L (6-16); Blood Urea Nitrogen 46 mg/dL (8-24); Bun/Creatinine Ratio 63.8 (12.0-20.0); CO2, Blood 27 mmol/L (21-32); Calcium, Blood 9.4 mg/dL (8.5-10.1); Chloride, Blood 103 mmol/L (98-108); Creatinine, Blood 0.72 mg/dL (0.60-1.20); Glomerular Filtration Rate >60 (60-); Glucose, Blood 115 mg/dL (70-99); Potassium, Blood 4.3 mmol/L (3.5-5.5); Sodium, Blood 137 mmol/L (136-145)
[2018-09-04 12:37] LABS: Adenovirus Not Detected (NOT DETECT); Bordetella pertussis Not Detected (NOT DETECT); Chlamydophila pneumoniae Not Detected (NOT DETECT); Coronavirus 229E Not Detected (NOT DETECT); Coronavirus HKU1 Not Detected (NOT DETECT); Coronavirus NL63 Not Detected (NOT DETECT); Coronavirus OC43 Not Detected (NOT DETECT); Human Metapneumovirus Not Detected (NOT DETECT); Human Rhinovirus/Enterovirus Not Detected (NOT DETECT); Influenza A Not Detected (NOT DETECT); Influenza A/2009-H1 Not Detected (NOT DETECT); Influenza A/H1 Not Detected (NOT DETECT); Influenza A/H3 Not Detected (NOT DETECT); Influenza B Not Detected (NOT DETECT); Mycoplasma pneumoniae Not Detected (NOT DETECT); Parainfluenza Virus 1 Not Detected (NOT DETECT); Parainfluenza Virus 2 Not Detected (NOT DETECT); Parainfluenza Virus 3 Not Detected (NOT DETECT); Parainfluenza Virus 4 Not Detected (NOT DETECT); Respiratory Syncytial Virus Not Detected (NOT DETECT)
--- NOTE | 2018-09-04 18:19 | NUR ---
END OF SHIFT; NO ACUTE CHANGES IN PT CONDITION NOTED TODAY. HE REMAINS MED NO TELE STATUS. PT COOPERATIVE WITH CARE. SBA TO BATHROOM. PER MD ARBEN HIGGINS TOMORROW. SATS ARE IN THE 91% RANGE ON 7 LITERS. PT WORKS WITH PT OT TODAY AND WOULD LIKE HOME HEALTH WHEN HE DISCHARGES TO COME HELP WITH DIFF CHORES THAT ARE TOO MUCH FOR HIM TO HANDLE WITH HIS AIR HUNGER.
--- NOTE | 2018-09-04 23:18 | NUR ---
ASSUMED CARE OF PATIENT AT APPROXIMATELY 1900 FROM RENATO Kirby RN. PATIENT ALERT AND ORIENTED X4; INDEPENDENT IN ROOM FROM BED TO BATHROOM. PATIENT IS MEDICAL NO TELE STATUS. PATIENT DENIES CP/PRESSURE, PAIN ELSEWHERE, NUMBNESS, TINGLING, DIZZINESS AND NAUSEA. PATIENT HAS DYSPNEA WHEN TALKING ALOT; IMPROVED GREATLY FROM WHEN I CARED FOR HIM A FEW NIGHTS AGO; OXYGEN SATURATION ABOVE 90% ON 6LPM VIA NC. PIV S/L. PATIENT REPORTS HE IS TO GO HOME TOMORROW POSSIBLY. PATIENT CURRENTLY RESTING IN BED; CALL LIGHT IN REACH; BED ALARM ON; BED IN LOWEST POSISTION; WILL CONTINUE TO MONITOR AND ASSESS UNTIL END OF SHIFT.
--- NOTE | 2018-09-05 01:56 | NUR ---
REPORT GIVEN TO ILA FORMULATION TECHNICIAN. NO ACUTE CHANGES TO REPORT.
--- NOTE | 2018-09-05 01:57 | NUR ---
ASSUMED CARE FROM HA PETTY. PATIENT LAYING IN BEDATTEMPTING TO SLEEP. WOKE WHEN WE ENTERED ROOM. DENIES ANY NEEDS. NO CHANGES IN ASSESSMENT.
--- NOTE | 2018-09-05 02:42 | NUR ---
PATIENT STOOD AT BEDSIDE TO USE URINAL. PATIENT OXYGEN DROPPED TO LOW 80'S ON 6L NC ASYPTOMATIC. PATIENT DENIES ANY NEEDS. ONCE LAYING IN BED PATIENT COMING UP BETWEEN 88 TO LOW 90'S.
[2018-09-05 06:45] LABS: Anion Gap 8 mmol/L (6-16); Blood Urea Nitrogen 47 mg/dL (8-24); Bun/Creatinine Ratio 60.1 (12.0-20.0); CO2, Blood 28 mmol/L (21-32); Calcium, Blood 9.6 mg/dL (8.5-10.1); Chloride, Blood 103 mmol/L (98-108); Creatinine, Blood 0.78 mg/dL (0.60-1.20); Glomerular Filtration Rate >60 (60-); Glucose, Blood 116 mg/dL (70-99); Potassium, Blood 4.6 mmol/L (3.5-5.5); Sodium, Blood 139 mmol/L (136-145)
--- NOTE | 2018-09-05 07:18 | NUR ---
Pt is sitting up in chair when we enter the room for a bedside handoff report from MALINDA Muñoz. He is pleasantly conversant, states he hopes to go home but would like home health or a caregiver for assistance to prevent readmission to the hospital. He is currently taking a breathing tx from RT [facility]. spo2 91% on 6 l/min O2 delivery via nasal prongs.
--- NOTE | 2018-09-05 07:44 | NUR ---
ASSUMED CARE OF PATIENT AT APPROX 0700, PT UP IN CHAIR, A&OX4. O2 SATURATION IN 86-87%, PT STATES HE HAD JUST BEEN UP TO THE BATHROOM, O2 SAURATIONS RECOVER WITH PURSED LIP BREATHING TO 91-94%. LS CLEAR AND TIGHT, DIM IN BASES. PT DENIES PAIN AND NAUSEA. BP ELEVATED, PT REPORTS JUST GETTING BACK FROM BATHROOM, WILL CONTINUE TO MONITOR.
[2018-09-05] MEDS ORDERED: glycopyrrolate INH (15:51)
[2018-09-05] MEDS ORDERED: PRED20 PO (15:52)
--- NOTE | 2018-09-05 16:58 | NUR ---
DISCHARGE SUMMARY PT A&Ox4. CALM AND COOPERATIVE WITH CARE. PT UP IN CHAIR DURING SHIFT. IND IN ROOM AND BATHROOM. PT REPORTS SOB WITH EXERTION, LS DIM BASES AND TIGHT T/O, ON 6L O2 VIA NC, WEARING 4-6L O2 AT HOME. PT DENIES NAUSEA AND PAIN DURING SHIFT. PT RECEIVING IV STEROIDS. ELEVATED BP NOTED, TRENDING DOWN, OTHER VSS. NO OTHER ACUTE CHANGES NOTED DURING SHIFT. PT HOME WITH HOME HEALTH AND DISCUSSES THE NEED FOR ADDITIONAL CARE GIVERS. PT EDUCATED ON DISCHARGE INTRUCTIONS, MEDICATIONS AND FOLLOW UP APPOINTMENTS. [facility] TO CONTACT FOR PCP FOLLOW UP AND PT STATES HE HAS AN APPOINTMENT WITH [facility] ON SUNDAY. MEDICATIONS FAXED TO [facility] PER PT REQUEST. PT LEFT ROOM VIA WHEELCHAIR AT 1425 WITH HOME O2 TANK. PT STABLE UPON DISCHARGE.
== END 2018-09-05 16:29 | disposition home or self-care (01) | DRG 193 ==
LOC: ER 09:36 → ERHOLD 14:55 → PCU 19:45
PROVIDERS: Internal Medicine Endocrinology, Diabetes & Metabolism; Physician Assistant; ADMIT Student in an Organized Health Care Education/Training Program
PROC: 5A09457 Assistance with Respiratory Ventilation, 24-96 Consecutive Hours, Continuous Positive Airway Pressure (ICD-10-PCS; principal; 2018-08-30)
DX: J18.9 Pneumonia, unspecified organism (principal); J96.21 Acute and chronic respiratory failure with hypoxia; N18.3 Chronic kidney disease, stage 3 (moderate); I12.9 Hypertensive chronic kidney disease with stage 1 through stage 4 chronic kidney disease, or unspecified chronic kidney disease; J44.9 Chronic obstructive pulmonary disease, unspecified; M48.54XD Collapsed vertebra, not elsewhere classified, thoracic region, subsequent encounter for fracture with routine healing; Z66 Do not resuscitate; Z99.81 Dependence on supplemental oxygen; Z85.46 Personal history of malignant neoplasm of prostate; Z87.891 Personal history of nicotine dependence; Z79.82 Long term (current) use of aspirin; Z79.51 Long term (current) use of inhaled steroids; Z79.899 Other long term (current) drug therapy
CPT/HCPCS: 36415; 36600; 71045; 71046; 80048; 80053; 82803; 83605; 83880; 84145; 84484; 85025; 87040; 87486; 87581; 87633; 87798; 93005; 93010; 94640; 94644; 94660; 94667; 94762; 96365; 96367; 96375; 97116; 97162; 97165; 97530; 97535; 98960; 99285-25; G0515; J0456; J0696; J1650; J2920; J2930; J7050

== ENCOUNTER → 2019-05-02 | Outpatient (CLI) | payer OTHER ==
[~2019-05-02] MED LIST changes: +ALBU90OI61 INH; +CHOL10002; +Colace100 MG PO; +Fish Oil 10001000 MG PO; +PRED20 PO; +glycopyrrolate INH
[2019-05-02 10:47] LABS: BASOPHILS ABSOLUTE AUTO 0.04 K/mm3 (0.00-0.23); BASOPHILS PERCENT AUTO 0 % (0-2); EOSINOPHILS ABSOLUTE AUTO 0.05 K/mm3 (0.00-0.68); EOSINOPHILS PERCENT AUTO 0 % (0-6); IMMATURE GRAN ABSOLUTE AUTO 0.08 K/mm3 (0.00-0.10); IMMATURE GRAN PERCENT AUTO 1 % (0-1); LYMPHOCYTES ABSOLUTE AUTO 0.86 K/mm3 (0.84-5.20); LYMPHOCYTES PERCENT AUTO 7 % (21-46); MONOCYTES ABSOLUTE AUTO 1.34 K/mm3 (0.16-1.47); MONOCYTES PERCENT AUTO 12 % (4-13); Mean Corpuscular HGB 32.6 pg (26.0-34.0); Mean Corpuscular HGB Conc 33.3 g/dL (31.5-36.5); Mean Corpuscular Volume 98 fL (80-100); Mean Platelet Volume 10.6 fL (9.1-12.4); NEUTROPHILS ABSOLUTE AUTO 9.22 K/mm3 (1.96-9.15); NEUTROPHILS PERCENT AUTO 80 % (41-73); Platelet Count 215 K/mm3 (150-400); RDW Standard Deviation 46.7 fL (35.1-46.3); White Blood Cell Count 11.59 K/mm3 (4.00-11.30)
[2019-05-02 10:57] LABS: Alanine Aminotransfer (ALT/SGP 25 U/L (12-78); Albumin, Blood 3.5 g/dL (3.4-5.0); Albumin/Globulin Ratio 0.7 (0.8-1.8); Alk Phos 96 U/L (40-126); Anion Gap 15 mmol/L (6-16); Aspartate Aminotrans (AST/SGOT 27 U/L (12-37); Bilirubin, Total 0.6 mg/dL (0.1-1.0); Blood Urea Nitrogen 22 mg/dL (8-24); Bun/Creatinine Ratio 23.9 (12.0-20.0); CO2, Blood 25 mmol/L (21-32); Calcium, Blood 9.7 mg/dL (8.5-10.1); Chloride, Blood 106 mmol/L (98-108); Creatinine, Blood 0.92 mg/dL (0.60-1.20); Glomerular Filtration Rate >60 (60-); Glucose, Blood 119 mg/dL (70-99); Sodium, Blood 146 mmol/L (136-145); Total Protein, Blood 8.5 g/dL (6.4-8.2)
== END | disposition home or self-care (01) ==
LOC: LAB EV 10:41 → LAB SHORT 10:41
PROVIDERS: Physician Assistant
DX: J44.9 Chronic obstructive pulmonary disease, unspecified (principal)
CPT/HCPCS: 80053; 83880; 84145; 85025

== ENCOUNTER 2020-03-09 10:12 | Emergency (ER) | payer OTHER ==
[~2020-03-09] VITALS: Ht 177.8 cm; Wt 88.5 kg
[~2020-03-09 10:12] MED LIST changes: -ATOR40TA PO; -CEFP200 PO; -DILTIAZEM 24HR240 M3 PO; -FLUTICASONE-SA1 EA10; -FLUTICASONE-SA1 EA10 INH; -IPRAT-ALBUT 0.5-3 ML INH; -Lisinopril2.5 MG; -METOPROLOL TART25 MG PO; -OXYC5 PO; -ROFL500T PO; -TAMSULOSIN HCL0.4 M1 PO
[2020-03-09] MEDS ORDERED: Lisinopril2.5 MG (10:27)
[2020-03-09] MEDS ORDERED: TIOT18 INH (10:27)
[2020-03-09] MEDS ORDERED: FLUTICASONE-SA1 EA10 (10:28)
[2020-03-09 11:10] LABS: CHOL/HDL RATIO 3.5; Cholesterol 219 mg/dL (50-200); HDL Cholesterol 63 mg/dL (>39); LDL/HDL RATIO 2.2; Low Density Lipoprotein Chol 141 mg/dL (0-110); Triglycerides 75 mg/dL (30-160); Very Low Density Lipoprot Chol 15 mg/dL (6-32)
[2020-03-09 11:21] LABS: International Normalized Ratio 1.05; Prothrombin Time Results 11.2 Sec (9.7-11.5)
== END 2020-03-09 11:46 | disposition short-term general hospital (02) ==
LOC: ER 10:12
PROVIDERS: Emergency Medicine; Pharmacist
DX: I21.19 ST elevation (STEMI) myocardial infarction involving other coronary artery of inferior wall (principal); J43.9 Emphysema, unspecified; Z79.899 Other long term (current) drug therapy; Z99.81 Dependence on supplemental oxygen; Z79.52 Long term (current) use of systemic steroids; Z79.82 Long term (current) use of aspirin; Z87.891 Personal history of nicotine dependence
CPT/HCPCS: 71046; 80061; 84484; 85610; 85730; 86850; 86900; 86901; 93005; 93010; 96374; 96376; 99285-25; 99291-25; A9270; J1644

== ENCOUNTER → 2020-03-09 | Outpatient (CLI) | payer OTHER ==
[~2020-03-09] MED LIST changes: +ATOR40TA PO; +CEFP200 PO; +DILTIAZEM 24HR240 M3 PO; +FLUTICASONE-SA1 EA10; +FLUTICASONE-SA1 EA10 INH; +IPRAT-ALBUT 0.5-3 ML INH; +Lisinopril2.5 MG; +METOPROLOL TART25 MG PO; +OXYC5 PO; +ROFL500T PO; +TAMSULOSIN HCL0.4 M1 PO
[2020-03-09 09:07] LABS: BASOPHILS ABSOLUTE AUTO 0.01 K/mm3 (0.00-0.23); BASOPHILS PERCENT AUTO 0 % (0-2); Hematocrit 48.2 % (37.0-53.0); Hemoglobin 16.3 g/dL (13.5-17.5); LYMPHOCYTES PERCENT AUTO 3 % (21-46); MONOCYTES ABSOLUTE AUTO 0.25 K/mm3 (0.16-1.47); MONOCYTES PERCENT AUTO 2 % (4-13); Mean Corpuscular HGB 32.8 pg (26.0-34.0); Mean Corpuscular HGB Conc 33.8 g/dL (31.5-36.5); Mean Corpuscular Volume 97 fL (80-100); Mean Platelet Volume 10.7 fL (9.1-12.4); Platelet Count 210 K/mm3 (150-400); Red Blood Cell Count 4.97 M/mm3 (4.30-5.90); White Blood Cell Count 10.33 K/mm3 (4.00-11.30)
[2020-03-09 09:13] LABS: EOSINOPHILS ABSOLUTE AUTO 0.23 K/mm3 (0.00-0.68); EOSINOPHILS PERCENT AUTO 2 % (0-6); IMMATURE GRAN ABSOLUTE AUTO 0.01 K/mm3 (0.00-0.10); IMMATURE GRAN PERCENT AUTO 0 % (0-1); NEUTROPHILS ABSOLUTE AUTO 9.53 K/mm3 (1.96-9.15); NEUTROPHILS PERCENT AUTO 92 % (41-73)
[2020-03-09 09:18] LABS: Albumin, Blood 4.3 g/dL (3.4-5.0); Bilirubin, Total 0.5 mg/dL (0.1-1.0); Bun/Creatinine Ratio 15.5 (12.0-20.0); Calcium, Blood 10.4 mg/dL (8.5-10.1); Creatinine, Blood 1.42 mg/dL (0.60-1.20); Globulin, Blood 4.3 g/dL (2.2-4.0); Potassium, Blood 3.8 mmol/L (3.5-5.5); Total Protein, Blood 8.6 g/dL (6.4-8.2)
[2020-03-09 09:42] LABS: BASOPHILS PERCENT MAN 0 % (0-2); EOSINOPHILS PERCENT MAN 0 % (0-6); LYMPHOCYTES PERCENT MAN 3 % (21-46); MONOCYTES PERCENT MAN 1 % (4-13); NEUTROPHILS ABSOLUTE MAN 9.91 K/mm3 (1.96-9.15); SEG NEUTROPHILS PERCENT MAN 96 % (41-73); TOTAL CELLS COUNTED 100
== END | disposition home or self-care (01) ==
LOC: LAB EV 09:00 → LAB SHORT 09:00
PROVIDERS: Physician Assistant
DX: R07.9 Chest pain, unspecified (principal); R06.00 Dyspnea, unspecified
CPT/HCPCS: 80053; 83880; 84484; 85025

== ENCOUNTER 2020-04-14 14:48 | Emergency (ER) | payer OTHER ==
[~2020-04-14] VITALS: Ht 177.8 cm; Wt 74.8 kg
[~2020-04-14 14:48] MED LIST changes: +FLUTICASONE-SA1 EA10; +Lisinopril2.5 MG
[2020-04-14 15:31] LABS: BASOPHILS ABSOLUTE AUTO 0.05 K/mm3 (0.00-0.23); BASOPHILS PERCENT AUTO 0 % (0-2); EOSINOPHILS ABSOLUTE AUTO 0.07 K/mm3 (0.00-0.68); EOSINOPHILS PERCENT AUTO 1 % (0-6); Hematocrit 35.4 % (37.0-53.0); Hemoglobin 11.7 g/dL (13.5-17.5); IMMATURE GRAN ABSOLUTE AUTO 0.11 K/mm3 (0.00-0.10); IMMATURE GRAN PERCENT AUTO 1 % (0-1); LYMPHOCYTES ABSOLUTE AUTO 0.55 K/mm3 (0.84-5.20); LYMPHOCYTES PERCENT AUTO 4 % (21-46); MONOCYTES ABSOLUTE AUTO 0.78 K/mm3 (0.16-1.47); MONOCYTES PERCENT AUTO 6 % (4-13); Mean Corpuscular HGB 31.5 pg (26.0-34.0); Mean Corpuscular HGB Conc 33.1 g/dL (31.5-36.5); Mean Corpuscular Volume 95 fL (80-100); NEUTROPHILS ABSOLUTE AUTO 10.99 K/mm3 (1.96-9.15); NEUTROPHILS PERCENT AUTO 88 % (41-73); Platelet Count 451 K/mm3 (150-400); RDW Coefficient Variation 13.2 % (11.7-14.2); RDW Standard Deviation 46.6 fL (35.1-46.3); Red Blood Cell Count 3.71 M/mm3 (4.30-5.90); White Blood Cell Count 12.55 K/mm3 (4.00-11.30)
[2020-04-14 15:39] LABS: Anion Gap 4 mmol/L (6-16); Blood Urea Nitrogen 20 mg/dL (8-24); Bun/Creatinine Ratio 28.2 (12.0-20.0); CO2, Blood 29 mmol/L (21-32); Calcium, Blood 9.5 mg/dL (8.5-10.1); Chloride, Blood 95 mmol/L (98-108); Creatinine, Blood 0.71 mg/dL (0.60-1.20); Glomerular Filtration Rate >60 (60-); Glucose, Blood 109 mg/dL (70-99); Potassium, Blood 4.9 mmol/L (3.5-5.5); Sodium, Blood 128 mmol/L (136-145)
[2020-04-14 15:45] LABS: International Normalized Ratio 1.04; Prothrombin Time Results 11.1 Sec (9.7-11.5)
[2020-04-14 16:19] LABS: Source, Urine Catheter
[2020-04-14 16:26] LABS: Appearance, Urine Bloody (Clear); Bilirubin, Urine Neg (Neg); Blood, Urine 5+ (Neg); Color, Urine Red (P-Yellow); Glucose Qualitative, Urine Neg (Neg); Ketones, Urine Neg (Neg); Leukocyte Esterase, Urine 2+ (Neg); Nitrite, Urine Neg (Neg); Protein, Urine 4+ (Neg); Urobilinogen, Urine NORM (Normal)
[2020-04-14 16:33] LABS: Bacteria Many /hpf; Red Blood Cells, Urine TNTC /hpf (0-2); Squamous Epithelial Cells Not Seen /hpf (Few)
[2020-04-14] MEDS ORDERED: CEFP200 PO (16:58)
[2020-04-14] MEDS ORDERED: FLUTICASONE-SA1 EA10 INH (17:07)
[2020-04-14] MEDS ORDERED: DILTIAZEM 24HR240 M3 PO (17:08)
[2020-04-14] MEDS ORDERED: OXYC5 PO (17:09)
[2020-04-14] MEDS ORDERED: IPRAT-ALBUT 0.5-3 ML INH (17:09)
[2020-04-14] MEDS ORDERED: ROFL500T PO (17:10)
[2020-04-14] MEDS ORDERED: TAMSULOSIN HCL0.4 M1 PO (17:11)
[2020-04-14] MEDS ORDERED: ATOR40TA PO (17:12)
[2020-04-14] MEDS ORDERED: METOPROLOL TART25 MG PO (17:13)
== END 2020-04-14 18:05 | disposition home or self-care (01) ==
LOC: ER 14:48
PROVIDERS: Emergency Medicine
DX: N39.0 Urinary tract infection, site not specified (principal); R31.0 Gross hematuria; J43.9 Emphysema, unspecified; Z79.899 Other long term (current) drug therapy; Z79.82 Long term (current) use of aspirin
CPT/HCPCS: 36415; 51700; 80048; 81001; 85025; 85610; 87077; 87086; 87186; 93005; 93010; 96365-59; 99284-25; J0696

== ENCOUNTER 2021-08-13 20:08 | Inpatient (IN) | payer OTHER ==
[~2021-08-13] VITALS: Ht 177.8 cm; Wt 86.2 kg
[~2021-08-13 20:08] MED LIST changes: +ATOR40TA PO; +CEFP200 PO; +DILTIAZEM 24HR240 M3 PO; +FLUTICASONE-SA1 EA10 INH; +IPRAT-ALBUT 0.5-3 ML INH; +METOPROLOL TART25 MG PO; +OXYC5 PO; +ROFL500T PO; +TAMSULOSIN HCL0.4 M1 PO
[2021-08-13 20:32] LABS: BASOPHILS ABSOLUTE AUTO 0.02 K/mm3 (0.00-0.23); BASOPHILS PERCENT AUTO 0 % (0-2); EOSINOPHILS ABSOLUTE AUTO 0.13 K/mm3 (0.00-0.68); EOSINOPHILS PERCENT AUTO 1 % (0-6); Hematocrit 38.3 % (37.0-53.0); Hemoglobin 11.9 g/dL (13.5-17.5); IMMATURE GRAN ABSOLUTE AUTO 0.07 K/mm3 (0.00-0.10); IMMATURE GRAN PERCENT AUTO 1 % (0-1); LYMPHOCYTES ABSOLUTE AUTO 0.66 K/mm3 (0.84-5.20); LYMPHOCYTES PERCENT AUTO 5 % (21-46); MONOCYTES ABSOLUTE AUTO 0.84 K/mm3 (0.16-1.47); MONOCYTES PERCENT AUTO 7 % (4-13); Mean Corpuscular HGB 30.9 pg (26.0-34.0); Mean Corpuscular HGB Conc 31.1 g/dL (31.5-36.5); Mean Corpuscular Volume 100 fL (80-100); Mean Platelet Volume 10.5 fL (9.1-12.4); NEUTROPHILS ABSOLUTE AUTO 11.08 K/mm3 (1.96-9.15); NEUTROPHILS PERCENT AUTO 87 % (41-73); Platelet Count 324 K/mm3 (150-400); RDW Coefficient Variation 13.2 % (11.7-14.2); RDW Standard Deviation 48.7 fL (35.1-46.3); Red Blood Cell Count 3.85 M/mm3 (4.30-5.90)
[2021-08-13 20:49] LABS: Albumin, Blood 2.7 g/dL (3.4-5.0); Albumin/Globulin Ratio 0.5 (0.8-1.8); Bilirubin, Total 0.4 mg/dL (0.1-1.0); Calcium, Blood 9.1 mg/dL (8.5-10.1); Creatinine, Blood 0.8 mg/dL (0.60-1.20); Globulin, Blood 5.3 g/dL (2.2-4.0); Potassium, Blood 4.4 mmol/L (3.5-5.5)
[2021-08-13 22:47] LABS: Influenza A, PCR NEGATIVE (NEGATIVE); Influenza B, PCR NEGATIVE (NEGATIVE); Resp Syncytial Virus, PCR NEGATIVE (NEGATIVE); SARS-Cov-2 (COVID-19) PCR, MMC NEGATIVE (NEGATIVE)
--- NOTE | 2021-08-14 11:15 | NUR ---
PT ARRIVAL... THE PT ARRIVED ON THE UNIT AT 0930 THE PT IS A&Ox4 AND SBA IN THE ROOM. THE PT WAS ON 10L OXYMIZER WITH O2 SATS 88-90% THE PT'S O2 SATS DROPPED DOWN TO THE LOW 70'S WHEN THE PT STOOD TO TRANSFER FROM THE GURNEY TO THE BED. THE PT'S L/S ARE TIGHT WITH SCATTERED WHEEZES MORE SO ON THE LEFT THAN THE RIGHT. THE PT'S RR IS IN THE 20'S. THE PT IS IN SR IN THE 80'S-90'S WITH A STABLE BP. NO EDEMA IS NOTED ON ASSESSMENT. THE PT IS IND WITH ADLs EXCEPT FOR THE FACT THAT THE PT'S O2 SATS DROP TO THE LOW 70'S AND RECOVER SLOWLY WITH ANY TYPE OF ACTIVITY. CALL LIGHT IN REACH WILL CONTINUE TO MONITOR.
--- NOTE | 2021-08-14 13:05 | NUR ---
PT UPDATE.... THE PT HAD CALLED TO USE THE URINAL, D/T PAST HISTORY OF PROSTATE CANCER THE PT IS UNABLE TO VOID WHILE SITTING OR LAYING IN BED, THIS RN HELPED THE PT UP TO STAND AT THE BEDSIDE TO VOID, DURING THIS TIME THE PT'S O2 SATS DROPPED DOWN TO 68% WHILE THE PT WAS ON 12L OXYMIZER THE PT'S O2 WAS INCREASED TO 15L OXYMIZER AFTER THE INCREASED O2 THE PT'S O2 SATS WERE SLOW TO RECOVER AT LEAST 3 MINS TO BE >85%. THE PT'S HR ALSO INCREASED TO SINUS TACH IN THE 120'S DURING THIS TIME. WILL CONTINUE TO MONITOR.
--- NOTE | 2021-08-14 17:17 | NUR ---
SHIFT SUMMARY.... PALLIATIVE CARE CONSULT WAS PLACED FOR THE PT, PALLIATIVE CARE RN CAME TO THE PT'S ROOM AND SPOKE WITH THE PT. THE PT'S VS HAVE BEEN STABLE EXCEPT FOR HIS O2 SATS THE PT HAS BEEN ON THE OXYMIZER AT 12-15L WITH O2 SATS 88-90%, L/S CONTINUE TO BE TIGHT WITH SCATTERED WHEEZES T/O. THE PT WAS PLACED ON THE AIRVO AT 45L AND 70% WITH O2 SATS 90-93%. THE PTS BP HAS BEEN STABLE. PER DR. VILLALTA THE PT IS TO STAY ON BEDREST TO HELP PREVENT DESATURATION EVENTS LIKE EARLIER TODAY WHEN THE PT STOOD TO VOID. THE PT HAS VERBALIZED HIS UNDERSTANDING OF THIS. THE PT'S DAUGHTER WAS AT THE BEDSIDE TO VISIT THE PT SHE MET WITH THE PROVIDER AND WAS UPDATED ON THE PT'S CONDITION AND PLAN OF CARE. CALL LIGHT IN REACH WILL CONTINUE TO MONITOR UNTIL REPORT IS GIVEN TO ONCOMING RN.
--- NOTE | 2021-08-14 17:39 | NUR ---
Spoke with Primary RN Lyn and discussed case prior to Pt visit. Pt may benefit from PC visit and possible advanced care planning. Pt PCU status. Pt desats quickly when sitting on edge of bed. Pt resting in bed upon arrival on 9 L O2 via oxymizer NC. Offered therapeutic listening as Pt reports being , having 2 children, daughter who lives local and a son who lives in [place]. Pt reports at baseline he wears 4 L O2 and is independent of his ADLs. He reports ability to do things still such as mow the lawn and garden. Pt reports having a portable O2 concentrator at home. Pt reports his daughter is supportive and plans to come to his home when D/C from the hospital to assist with any needs he may have. He reports plan to have conversation with daughter regarding planning for the future. Gentle education on disease process including trajectory. Discussed the importance of having conversations with his PCP as well and developing plans. Continued therapeutic listening. Pt starting to desat with conversation. RT in to provide AIRVO for Pt. Ended visit to allow Pt to rest. Palliative Care will remain available.
--- NOTE | 2021-08-14 19:00 | NUR ---
ASSUMED CARE OF PT, HE IS NOTED RESTING QUIETLY RECLINING IN BED AND WATCHING TV. DENIES NEEDS AT THIS TIME AIRVO SETTINGS REVIEWED WITH OFFGOING RN.
--- NOTE | 2021-08-14 23:53 | NUR ---
V-TACH 16 BEAT RUN OF V-TACH, PT DENIES CP/PRESSURE, PALPITATIONS, DIZZINESS/VERTIGO, INCREASED SOB/DYSPNEA, STATES THAT HE WAS SURPRISED TO LOOK UP AT MONITOR AND SEE RED/ALARM GOING OFF. OF NOTE PT WAS HAVING COUGHING EPISODE IMMEDIATELY PRIOR TO ONSET OF V-TACH. DISCUSSED RHYTHM WITH PT AND CLARIFIED CODE STATUS. PT STATES AGAIN THAT HE DOES WISH TO BE DNR. WILL NOTIFY HOSPITALIST STITCH BONDING MACHINE OPERATOR
[2021-08-15 01:21] LABS: Calcium, Blood 9.2 mg/dL (8.5-10.1); Creatinine, Blood 0.82 mg/dL (0.60-1.20); Magnesium, Blood 1.7 mg/dL (1.6-2.4); Potassium, Blood 4.4 mmol/L (3.5-5.5)
--- NOTE | 2021-08-15 05:24 | NUR ---
PT AWAKE MOST OF THIS SHIFT, HE DOES REPORT THAT HE HAS BEEN ABLE TO SLEEP IN SHORT SEGMENTS THROUGHOUT NOC. SATS LOW TO MID 90S AT REST, DESATS TO MID 80S WITH COUGHING SPELLS HOWEVER RECOVERS QUICKLY TO LOW TO MID 90S WITH HEATED HUMIDIFIED HIGH FLOW OXYGEN AT 50 L/MIN AND 70% FIO2, LUNGS CONT CLEAR/DIM, PT DOES STATE THAT BREATHING/COUGHING FEELS IMPROVED FROM ARRIVAL TO ER. SINUS RHYTHM THI SSHIFT RATE, 70S, PT DID HAVE 16 BEAT RUN OF V-TACH, HOSPITALIST TEACHER OF THE EMOTIONALLY DISTURBED WAS NOTIFIED, PT DENIED SYMPTOMS AND PRESSURE MAINTAINED STABLE. STAT BMP AND MAGNESIUM WAS ORDERED AND OBTAINED, POTASSIUM AND MAGNESIUM WERE WNL. HE AGAIN HAD A 5 BEAT RUN OF V-TACH AT 0441 THIS AM, AGAIN DENIED SYMPTOMS. WILL CONT TO MONITOR.
--- NOTE | 2021-08-15 08:28 | NUR ---
AM NOTE... ASSUMED CARE OF PT AT 0700, THE PT IS A&Ox4. THE PT WAS ADMITTED FOR COPD EXACERBATION CURRENTLY THE PT IS ON AIRVO AT 50L AND 70% WITH O2 SATS >88% L/S CLEAR AND DIM T/O THIS IS AN IMPROVEMENT FROM YESTERDAY, NO WHEEZES NOTED. RR IS IN THE 20'S. THE PT IS IN ST IN THE LOW 100'S W/OCC PVCs NO EDEMA NOTED ON ASSESSMENT. THE PT'S BT ARE PRESENT AND HYPOACTIVE, ABD IS SOFT AND NONTENDER TO PALP. THE PT IS ABLE TO USE THE URINAL WHILE IN BED. THE PT IS CURRENTLY ON BED REST D/T SEVERE DESATURATION WITH ANY MOVEMENT. THE PT'S BP IS STABLE AT T HIS TIME. CALL LIGHT IN REACH WILL CONTINUE TO MONITOR.
--- NOTE | 2021-08-15 18:19 | NUR ---
SHIFT SUMMARY.... NO ACUTE NEGATIVE CHANGES NOTED THIS SHIFT. THE PT'S VS HAVE BEEN STABLE. THE PT DID NOT HAVE ANY RUNS OF VTACH THIS SHIFT LIKE HE DID DURING NOC SHIFT. THE PT GOT A BED BATH AND LINEN CHANGE THIS SHIFT. THE PT HAS BEEN USING THE URINAL IN THE BED AND VOIDING 150MLS-200MLS EACH TIME. THE PT'S AIRVO SETTINGS ARE 40L AND 60% WITH O2 SATS >89%. WILL CONTINUE TO MONITOR UNTIL REPORT IS GIVEN TO ONCOMING RN.
[2021-08-16 09:04] LABS: BASOPHILS ABSOLUTE AUTO 0.01 K/mm3 (0.00-0.23); BASOPHILS PERCENT AUTO 0 % (0-2); EOSINOPHILS PERCENT AUTO 0 % (0-6); Hematocrit 42.7 % (37.0-53.0); Hemoglobin 13.2 g/dL (13.5-17.5); IMMATURE GRAN ABSOLUTE AUTO 0.06 K/mm3 (0.00-0.10); IMMATURE GRAN PERCENT AUTO 1 % (0-1); LYMPHOCYTES ABSOLUTE AUTO 0.44 K/mm3 (0.84-5.20); LYMPHOCYTES PERCENT AUTO 4 % (21-46); MONOCYTES ABSOLUTE AUTO 0.34 K/mm3 (0.16-1.47); MONOCYTES PERCENT AUTO 3 % (4-13); Mean Corpuscular HGB 30.6 pg (26.0-34.0); Mean Corpuscular HGB Conc 30.9 g/dL (31.5-36.5); Mean Corpuscular Volume 99 fL (80-100); Mean Platelet Volume 10.2 fL (9.1-12.4); NEUTROPHILS ABSOLUTE AUTO 10.79 K/mm3 (1.96-9.15); NEUTROPHILS PERCENT AUTO 93 % (41-73); Platelet Count 387 K/mm3 (150-400); RDW Standard Deviation 47.1 fL (35.1-46.3); Red Blood Cell Count 4.32 M/mm3 (4.30-5.90); White Blood Cell Count 11.64 K/mm3 (4.00-11.30)
[2021-08-16 09:27] LABS: Albumin, Blood 2.6 g/dL (3.4-5.0); Anion Gap 5 mmol/L (6-16); Blood Urea Nitrogen 28 mg/dL (8-24); Bun/Creatinine Ratio 37.5 (12.0-20.0); CO2, Blood 32 mmol/L (21-32); Calcium, Blood 9.2 mg/dL (8.5-10.1); Chloride, Blood 97 mmol/L (98-108); Creatinine, Blood 0.75 mg/dL (0.60-1.20); Glomerular Filtration Rate 93 (60-); Glucose, Blood 181 mg/dL (70-99); Magnesium, Blood 1.7 mg/dL (1.6-2.4); Phosphorus, Blood 3.2 mg/dL (2.5-4.9); Potassium, Blood 4.2 mmol/L (3.5-5.5); Sodium, Blood 134 mmol/L (136-145)
--- NOTE | 2021-08-16 10:55 | NUR ---
PT ATTEMPTED TO USE BEDPAN AND WAS UNABLE TO DO SO. ASKED FOR SUPPOSITORY. HE SAYS THAT HE HAS HAD TO USE THEM ON OCC. MADE AWARE, ORDERS REC'D.
--- NOTE | 2021-08-16 13:18 | NUR ---
KEVEN REMAINS UP IN THE CHAIR. HE IS MUCH HAPPIER ABOUT BEING ABLE TO BE UP IN THE ROOM WITH PERMISSION FROM . HE IS EATING ALL OF HIS MEALS AND IS VOIDING PER THE URINAL WITHOUT INCIDENT. HE REMAINS ON AIRVO 40L/60%.
--- NOTE | 2021-08-16 14:24 | NUR ---
Spiritual Care Consult request from Dr. Moss. Pt. is sitting up in recliner and welcomes my visit. Pt. is pleasant but displays evidence of being skeptical of protestant. Listen theraputically and develop rapport. Pt. displays evidence of engagement and trust. Pt. sought opportunity to ask this hog grader questions about God. Engaged pastorally and Pt. displayed evidence of understanding. With Pts. permission, prayed with Pt. Pt. verbalized gratitude for the spiritual care visit and welcomed this hog grader to return.
--- NOTE | 2021-08-16 16:37 | NUR ---
KEVEN CONTINUES IN THE CHAIR, HE FEELS IN "REALLY GOOD SPIRITS NOW" THAT HE HAS BEEN ABLE TO DO A "LITTLE BIT MORE". HE WAS ABLE TO CLEAN HIMSELF, BRUSH HIS TEETH AND MAINTAIN HIS OXYGEN SATURATION >89%. HE IS SIPPING ON HIS ICE WATER. STATES HE WOULD LIKE TO STAY SITTING UP UNTIL AFTER DINNER. VERY [place]- TIVE AND ENGAGING WITH ALL STAFF.
--- NOTE | 2021-08-16 17:59 | NUR ---
KEVEN CONTINUES ON AIRVO 40L 62%, SATS >92%. HE REMAINS UP IN THE CHAIR, STATING THAT IT HAS HELPED HIM A LOT TODAY. HE WAS ABLE TO HAVE A BM AND THAT MADE HIM "FEEL BETTER" WELL. HE KEEPS A CLOSE EYE ON HIS SATS AND HAS BEEN USING THE FLUTTER VALVE PER INSTRUCTIONS BY Cam RONQUILLO/Ethan. HE HAS TAKEN IN ALL HIS MEALS WITHOUT DIFFICULTY, DRINKING HIS WATER. LUNGS REMAIN WITH CRACKLES IN THE BASES.
--- NOTE | 2021-08-16 18:17 | NUR ---
KEVEN TRANSFERRED BACK TO BED, DID THE MAJORITY OF THE WORK WITH SBA. HE DID DROP SATS (80) AFTER GETTING IN BED AND TALKING QUITE A BIT. HE RECOVERED WELL.
--- NOTE | 2021-08-16 21:59 | NUR ---
SHIFT ASSESSMENT ASSUMED CARE OF PT @ 1900, BEDSIDE REPORT FROM MALINDA LICONA. PT A&OX4, FOLLOWING COMMANDS, MISAEL. PT VERY TALKATIVE, ADMITS HE WAS VERY CONCERNED ABOUT CONDITION BUT MORE OPTIMISTIC AFTER BEING UP IN BEDSIDE CHAIR TODAY. REMAINS ON AIRVO-40L/62% c SATS >90%. OTHER VSS. INDEPENDENTLY USING URINAL. CALL LIGHT IN REACH, WILL MONITOR CLOSELY.
--- NOTE | 2021-08-17 05:47 | NUR ---
SHIFT SUMMARY PT REMAINS ALERT AND ORIENTED, ABLE TO SLEEP FOR MOST OF THE NIGHT. NO ACUTE CHANGES IN PT CONDITION. AIRVO SETTINGS REMAIN THE SAME. VSS. PT CONTINUING TO INDEPENDENTLY USE URINAL. NO BM. REPORT TO ONCOMING NURSE.
--- NOTE | 2021-08-17 07:21 | NUR ---
0700 assumed care PATIENT AWAKE AND ALERT AND ORIENTED X4. HE IS UP IN THE CHAIR THIS MORNING. HE IS ON AIRVO 40L 60% SAO2 AT 94% WHEN NOT TALKING AND WHEN TALKING HE DROPS TO HIGH 88%. HIS LUNGS ARE DIM BUT CLEAR, HE HAS S1S2 HEART TONES, HE HAS +BT'S X 4 QUAD. HIS PPP X 4 EXTREM. IV ARE SL AT THIS TIME. PULSE IS 70 SR BP STABLE. NO ACUTE NEEDS, HE STATES HE HAS GOOD SPIRITS TODAY.
--- NOTE | 2021-08-17 12:06 | NUR ---
NOON FOLLOW UP PATIENT HAS BEEN UP IN THE [facility] ALL DAY THUS FAR. HE STANDS AT THE CHAIR, USES THE URINAL WITHOUT ASSITANCE. HE DROPS HIS OXYGENATION WITH TALKING AND SOME ACTIVITY BUT IS USING THE FLUTTER VALVE WELL AND STILL IN GOOD SPIRITS. HE IS ENJOYING THE FOOD TOO. NO ACUTE CHANGES AT THIS TIME.
--- NOTE | 2021-08-17 14:22 | NUR ---
Spiritual Care visit. Pt. is sitting up in a chair and welcomes my visit. Pt. is pleasant and verbalizes improvement in his condition. Facilitate a life review. Pt. displays evidence of engagement and trust. Pt. verbalizes that his son from out of state is driving to [place] tomorrow. Explored issues of prosper and belief, and consider how he has seen God protect him. Pt. displayed evidence of agreement. Pt. verbalized gratitude for the spiritual care visit.
--- NOTE | 2021-08-17 18:28 | NUR ---
KEVEN HAD A GOOD DAY. HE WAS UP IN THE CHAIR ALLL DAY. HE STOOD UP AND DOWN INDEPENDENTLY. HE LOVED ALL HIS MEALS TODAY AND ATE 100% EACH MEAL. HE IS IN GREAT SPIRITS TODAY TALKATIVE WITH ANYONE WHO WOULD VISIT HIM. HE ALSO HAD A VISIT FROM PLEDGER [facility] TODAY. VS HAVE BEEN STABLE ALL DAY. NO ACUTE NEEDS AT THIS TIME. AIRFLOW 40l 60% SAOW 86-94% DEPENDING ON ACTIVITY. WILL GIVE REPORT TO NEXT SHIFT TO RESUME CARE.
[2021-08-18 05:17] LABS: Hematocrit 42.6 % (37.0-53.0); Hemoglobin 13.1 g/dL (13.5-17.5); Mean Corpuscular HGB 30.3 pg (26.0-34.0); Mean Corpuscular HGB Conc 30.8 g/dL (31.5-36.5); Mean Corpuscular Volume 98 fL (80-100); Mean Platelet Volume 10.4 fL (9.1-12.4); Platelet Count 334 K/mm3 (150-400); RDW Coefficient Variation 12.6 % (11.7-14.2); RDW Standard Deviation 45.4 fL (35.1-46.3); Red Blood Cell Count 4.33 M/mm3 (4.30-5.90); White Blood Cell Count 9.13 K/mm3 (4.00-11.30)
[2021-08-18 05:39] LABS: Albumin, Blood 2.8 g/dL (3.4-5.0); Anion Gap 5 mmol/L (6-16); Blood Urea Nitrogen 35 mg/dL (8-24); Bun/Creatinine Ratio 44.7 (12.0-20.0); CO2, Blood 34 mmol/L (21-32); Calcium, Blood 9.3 mg/dL (8.5-10.1); Chloride, Blood 97 mmol/L (98-108); Creatinine, Blood 0.78 mg/dL (0.60-1.20); Glomerular Filtration Rate 92 (60-); Glucose, Blood 151 mg/dL (70-99); Magnesium, Blood 2.1 mg/dL (1.6-2.4); Phosphorus, Blood 3.5 mg/dL (2.5-4.9); Potassium, Blood 4.5 mmol/L (3.5-5.5); Sodium, Blood 136 mmol/L (136-145)
[2021-08-18 05:44] LABS: BAND PERCENT MAN 2 % (0-8); BASOPHILS PERCENT MAN 0 % (0-2); EOSINOPHILS PERCENT MAN 0 % (0-6); LYMPHOCYTES ABSOLUTE MAN 0.27 K/mm3 (0.84-5.20); LYMPHOCYTES PERCENT MAN 3 % (21-46); METAMYELOCYTE ABSOLUTE MAN 0.18 K/mm3 (0.00-0.00); METAMYELOCYTE PERCENT MAN 2 % (0-0); MONOCYTES ABSOLUTE MAN 0.27 K/mm3 (0.16-1.47); MONOCYTES PERCENT MAN 3 % (4-13); NEUTROPHILS ABSOLUTE MAN 8.39 K/mm3 (1.96-9.15); SEG NEUTROPHILS PERCENT MAN 90 % (41-73); TOTAL CELLS COUNTED 100
--- NOTE | 2021-08-18 06:28 | NUR ---
WORSTED WINDER SUMMARY ADMITTED FOR COPD, EMPHYSEMA. PT IS A DNR. ON AIRVO 40LPM AT 60 FIO2 AND SATTING AROUND 91%. HE IS NORMALLY ON 4L BY WA BASELINE. PT DENIES SOB. FEELS IMPROVED. PT USING URINAL INDEPENDENTLY AND CALLING APPROPRIATELY. NO PAIN CONCERNS AT THIS TIME.
--- NOTE | 2021-08-18 18:10 | NUR ---
DAYSHIFT SUMMARY No acute changes to patient status. Saturations stable on high-flow oxygen, sats drop to 86-87% when pateint is talking or eating. Patient doing well today, OOB sat in chair for most of the day. Continuing IV dexamethasone & ABX. Vitals stable.
--- NOTE | 2021-08-19 04:00 | NUR ---
SHIFT SUMMARY: NO COMPLIANTS OF RESPIRATORY DISTRESS. VSS, NO REPORTS OF PAIN. LUNGS ARE DIMMINISHED. PATIENT REMAINS ON AIRVO 40L AT 55% 90-92%. MELATONINWAS GIVEN FOR INSIMNIA WITH GOOD EFFECT.
[2021-08-19 05:00] LABS: BASOPHILS ABSOLUTE AUTO 0.01 K/mm3 (0.00-0.23); BASOPHILS PERCENT AUTO 0 % (0-2); EOSINOPHILS PERCENT AUTO 0 % (0-6); Hematocrit 42.4 % (37.0-53.0); Hemoglobin 13.4 g/dL (13.5-17.5); IMMATURE GRAN ABSOLUTE AUTO 0.14 K/mm3 (0.00-0.10); IMMATURE GRAN PERCENT AUTO 1 % (0-1); LYMPHOCYTES ABSOLUTE AUTO 0.39 K/mm3 (0.84-5.20); LYMPHOCYTES PERCENT AUTO 4 % (21-46); MONOCYTES ABSOLUTE AUTO 0.32 K/mm3 (0.16-1.47); MONOCYTES PERCENT AUTO 3 % (4-13); Mean Corpuscular HGB 31.1 pg (26.0-34.0); Mean Corpuscular HGB Conc 31.6 g/dL (31.5-36.5); Mean Corpuscular Volume 98 fL (80-100); Mean Platelet Volume 10.6 fL (9.1-12.4); NEUTROPHILS ABSOLUTE AUTO 8.93 K/mm3 (1.96-9.15); NEUTROPHILS PERCENT AUTO 91 % (41-73); Platelet Count 321 K/mm3 (150-400); RDW Coefficient Variation 12.6 % (11.7-14.2); RDW Standard Deviation 45.7 fL (35.1-46.3); Red Blood Cell Count 4.31 M/mm3 (4.30-5.90); White Blood Cell Count 9.79 K/mm3 (4.00-11.30)
[2021-08-19 05:22] LABS: Albumin, Blood 2.7 g/dL (3.4-5.0); Anion Gap 6 mmol/L (6-16); Blood Urea Nitrogen 35 mg/dL (8-24); Bun/Creatinine Ratio 43.6 (12.0-20.0); CO2, Blood 34 mmol/L (21-32); Calcium, Blood 8.9 mg/dL (8.5-10.1); Chloride, Blood 95 mmol/L (98-108); Glomerular Filtration Rate 91 (60-); Glucose, Blood 149 mg/dL (70-99); Phosphorus, Blood 3.4 mg/dL (2.5-4.9); Potassium, Blood 4.4 mmol/L (3.5-5.5); Sodium, Blood 135 mmol/L (136-145)
--- NOTE | 2021-08-19 17:06 | NUR ---
DAYSHIFT SUMMARY Patient doing well today, no acute changes to status. Continues to be on high flow oxygen, patient didn't want RT to change O2 to NC today. Lungs clear/diminished, patient appears tachypnea at rest, sats drop to 88% when talking/eating meals. IV ABX and IV Solumedrol administred. Vitals stable.
[2021-08-20 05:18] LABS: BASOPHILS ABSOLUTE AUTO 0.02 K/mm3 (0.00-0.23); BASOPHILS PERCENT AUTO 0 % (0-2); EOSINOPHILS PERCENT AUTO 0 % (0-6); Hematocrit 43.1 % (37.0-53.0); Hemoglobin 13.5 g/dL (13.5-17.5); IMMATURE GRAN ABSOLUTE AUTO 0.22 K/mm3 (0.00-0.10); IMMATURE GRAN PERCENT AUTO 2 % (0-1); LYMPHOCYTES ABSOLUTE AUTO 0.33 K/mm3 (0.84-5.20); LYMPHOCYTES PERCENT AUTO 3 % (21-46); MONOCYTES ABSOLUTE AUTO 0.35 K/mm3 (0.16-1.47); MONOCYTES PERCENT AUTO 3 % (4-13); Mean Corpuscular HGB 30.9 pg (26.0-34.0); Mean Corpuscular HGB Conc 31.3 g/dL (31.5-36.5); Mean Corpuscular Volume 99 fL (80-100); Mean Platelet Volume 10.4 fL (9.1-12.4); NEUTROPHILS PERCENT AUTO 92 % (41-73); Platelet Count 318 K/mm3 (150-400); RDW Coefficient Variation 12.7 % (11.7-14.2); RDW Standard Deviation 45.5 fL (35.1-46.3); Red Blood Cell Count 4.37 M/mm3 (4.30-5.90); White Blood Cell Count 11.12 K/mm3 (4.00-11.30)
[2021-08-20 05:50] LABS: Albumin, Blood 2.7 g/dL (3.4-5.0); Anion Gap 5 mmol/L (6-16); Blood Urea Nitrogen 38 mg/dL (8-24); Bun/Creatinine Ratio 41.8 (12.0-20.0); CO2, Blood 35 mmol/L (21-32); Chloride, Blood 97 mmol/L (98-108); Creatinine, Blood 0.91 mg/dL (0.60-1.20); Glomerular Filtration Rate 87 (60-); Glucose, Blood 144 mg/dL (70-99); Magnesium, Blood 1.9 mg/dL (1.6-2.4); Phosphorus, Blood 3.4 mg/dL (2.5-4.9); Potassium, Blood 4.6 mmol/L (3.5-5.5); Sodium, Blood 137 mmol/L (136-145)
--- NOTE | 2021-08-20 06:37 | NUR ---
SHIFT SUMMARY: PATIENT IS NOW ON 6L HIGH FLOW 02, HUMIDIFICATION IS ADDED FOR COMFORT. DESATS TO 83 WHEN STANDING AT THE BEDSIDE AND TALKING. PATIENT IS STRESSED DUE TO DAUGHTER TELLING HIM HE NEEDS HELP AT HOME. PATIENT CAN NOT IDENTIFIED ANY SPECIFIC ADL'S HE NEEDS HELP WITH OTHER THAN SHOPPING. PATIENT WOULD LIKE TO SPEAK WITH CASE MANAGEMENT OR BUILDING MAINTENANCE WORKER BEFORE DC.
--- NOTE | 2021-08-20 17:54 | NUR ---
DAYSHIFT SUMMARY Patient doing well today, transitioned to 9L oxygen NC w/ humidifer, sats stable. Patient will intermittanly desat when eating/talking. MD assessed patient at bedside, plan is to continue to work on decreasing Solu-medrol dose & weaning oxygen down to baseline use. Vitals stable.
[2021-08-21 05:29] LABS: BASOPHILS ABSOLUTE AUTO 0.03 K/mm3 (0.00-0.23); BASOPHILS PERCENT AUTO 0 % (0-2); EOSINOPHILS ABSOLUTE AUTO 0.04 K/mm3 (0.00-0.68); EOSINOPHILS PERCENT AUTO 0 % (0-6); Hematocrit 43.9 % (37.0-53.0); Hemoglobin 13.5 g/dL (13.5-17.5); IMMATURE GRAN ABSOLUTE AUTO 0.23 K/mm3 (0.00-0.10); IMMATURE GRAN PERCENT AUTO 2 % (0-1); LYMPHOCYTES PERCENT AUTO 7 % (21-46); MONOCYTES ABSOLUTE AUTO 0.86 K/mm3 (0.16-1.47); MONOCYTES PERCENT AUTO 7 % (4-13); Mean Corpuscular HGB 30.5 pg (26.0-34.0); Mean Corpuscular HGB Conc 30.8 g/dL (31.5-36.5); Mean Corpuscular Volume 99 fL (80-100); Mean Platelet Volume 10.6 fL (9.1-12.4); NEUTROPHILS ABSOLUTE AUTO 9.84 K/mm3 (1.96-9.15); NEUTROPHILS PERCENT AUTO 83 % (41-73); Platelet Count 304 K/mm3 (150-400); RDW Coefficient Variation 12.8 % (11.7-14.2); RDW Standard Deviation 46.5 fL (35.1-46.3); Red Blood Cell Count 4.42 M/mm3 (4.30-5.90)
[2021-08-21 06:44] LABS: Albumin, Blood 2.6 g/dL (3.4-5.0); Albumin/Globulin Ratio 0.7 (0.8-1.8); Bilirubin, Total 0.2 mg/dL (0.1-1.0); Bun/Creatinine Ratio 40.3 (12.0-20.0); Calcium, Blood 8.8 mg/dL (8.5-10.1); Creatinine, Blood 0.92 mg/dL (0.60-1.20); Globulin, Blood 3.7 g/dL (2.2-4.0); Potassium, Blood 4.4 mmol/L (3.5-5.5); Total Protein, Blood 6.3 g/dL (6.4-8.2)
--- NOTE | 2021-08-21 07:32 | NUR ---
SHIFT SUMMARY: PATIENT IS ON 8L NC, SOB WITH ACTIVITY AND TALKING PERSISTS. ABLE TO MAINTAIN SATS 87-89%. PATIENT IS INDEPENDANT AT THE BEDSIDE WITH THE URINAL TO VOID. VSS, NO REPORTS OF PAIN.
--- NOTE | 2021-08-21 18:07 | NUR ---
SHIFT SUMMARY NO ACUTE CHANGES THIS SHIFT. PATIENT IS ALERT, ORIENTED AND ABLE TO MAKE HIS NEEDS KNOWN. PATIENT IS PLEASANT AND COOPERATIVE WITH CARE. CUTTENTLY, PATIENT IS ON 6L VIA HIGHFLOW NC. HE STATES THAT HIS HOME CONCENTRATOR GOES UP TO 10L. HIS PORTABLE CONCENTRATOR GOES UP TO 6L. HE IS A STANDBY ASSIST TO THE BEDSIDE COMMODE. HE FEELS CONFIDENT THAT HE CAN AMBULATE HOME DISTANCES BUT THAT HERE ITS "TO DIFFICULT WITH ALL THE TUBING." BED LOW AND LOCKED, CALL LIGHT WITHIN REACH. HE IS INDEPENDENT IN HIS ROOM. WILL CONT TO MONITOR UNTIL REPORT GIVEN TO PLANT PULLER RN.
--- NOTE | 2021-08-22 05:49 | NUR ---
SHIFT SUMMARY: PATIENT IS ON 6L NC, ABLE TO MAINTAIN SATS 90-93%. STANDS AT THE BEDSIDE TO VOID INDEPENDANTLY. MELATONIN WAS GIVEN WITH GOOD EFFECT.
[2021-08-22] MEDS ORDERED: PRED20 PO (10:17)
--- NOTE | 2021-08-22 16:32 | NUR ---
PATIENT DISCHARGED HOME Patient discharged home today. Casemanagement met with patient to disucss homehealth options. Patient transitioned to oral Prednisione, discussed titration schedule with patient, patient verbalized understanding. [facility] delivered portable tank. Removed IV, vitals stable. Patient left at 1600.
== END 2021-08-22 17:15 | disposition home or self-care (01) | DRG 193 ==
LOC: ER 20:08 → PCU 23:03 → ICUW 08-14 09:38 → MEDS 08-17 21:30
PROVIDERS: Emergency Medicine; Family Medicine; Internal Medicine; ADMIT Internal Medicine
DX: J15.9 Unspecified bacterial pneumonia (principal); J96.21 Acute and chronic respiratory failure with hypoxia; J96.22 Acute and chronic respiratory failure with hypercapnia; J43.9 Emphysema, unspecified; Z51.5 Encounter for palliative care; Z66 Do not resuscitate; Z20.822 Contact with and (suspected) exposure to COVID-19; I10 Essential (primary) hypertension; N40.0 Benign prostatic hyperplasia without lower urinary tract symptoms; Z99.81 Dependence on supplemental oxygen; Z85.46 Personal history of malignant neoplasm of prostate; Z98.890 Other specified postprocedural states; Z79.51 Long term (current) use of inhaled steroids; Z79.82 Long term (current) use of aspirin; Z79.899 Other long term (current) drug therapy
CPT/HCPCS: 0241U; 36415; 71045; 80048; 80053; 80069; 83735; 84145; 85025; 93005; 93010; 94640; 94644; 94660; 94664; 94760; 94762; 96365; 96375; 96376; 98960; 99285-25; A9270; J0456; J0696; J1650; J2930; J7050; J7512